=== PATIENT | male | born 1975 | race Two or more races ===

== ENCOUNTER 2024-07-11 20:59 | Emergency (ER) | payer MEDICAID, SELFPAY ==
[2024-07-11 20:59] VITALS: BMI 33.0
[2024-07-11 21:09] VITALS: BP 154/92; PULSE 100; RESP 18; TEMP 36.9; O2SAT 99
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
[2024-07-11 23:26] VITALS: BP 145/67; PULSE 87; RESP 18; TEMP 36.6; O2SAT 99
== END 2024-07-11 23:26 | disposition home or self-care (01) ==
PROVIDERS: Emergency Provider Emergency Medicine
DX: S16.1XXA Strain of muscle, fascia and tendon at neck level, initial encounter (principal); S20.219A Contusion of unspecified front wall of thorax, initial encounter; S09.90XA Unspecified injury of head, initial encounter; V89.2XXA Person injured in unspecified motor-vehicle accident, traffic, initial encounter
CPT/HCPCS: 70450; 71046; 72125; 99284

== ENCOUNTER 2024-07-24 13:49 | Outpatient (AMB) | payer MEDICAID, SELFPAY ==
[2024-07-24 14:06] VITALS: BP 158/93; PULSE 101; RESP 18; TEMP 36.3; O2SAT 96; BMI 34.5
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
== END 2024-07-24 14:26 | disposition home or self-care (01) ==
LOC: HODAHC 13:49
PROVIDERS: Supervising Provider Internal Medicine; Visit Provider Student in an Organized Health Care Education/Training Program
DX: S29.012D Strain of muscle and tendon of back wall of thorax, subsequent encounter (principal); S39.012D Strain of muscle, fascia and tendon of lower back, subsequent encounter; V89.2XXD Person injured in unspecified motor-vehicle accident, traffic, subsequent encounter; E11.9 Type 2 diabetes mellitus without complications; Z79.4 Long term (current) use of insulin; Z79.85 Long-term (current) use of injectable non-insulin antidiabetic drugs; I10 Essential (primary) hypertension
CPT/HCPCS: 99213; G0463

== ENCOUNTER 2024-10-30 13:39 | Outpatient (AMB) | payer MEDICAID, SELFPAY ==
[2024-10-30 13:51] VITALS: BP 153/91; PULSE 104; RESP 18; TEMP 36.8; O2SAT 98; BMI 34.8
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
== END 2024-10-30 14:56 | disposition home or self-care (01) ==
LOC: HODAHC 13:39
PROVIDERS: PCP Student in an Organized Health Care Education/Training Program; Referring Provider Student in an Organized Health Care Education/Training Program; Supervising Provider Internal Medicine; Visit Provider Student in an Organized Health Care Education/Training Program
DX: N47.6 Balanoposthitis (principal); E11.9 Type 2 diabetes mellitus without complications; I10 Essential (primary) hypertension; Z91.148 Patient's other noncompliance with medication regimen for other reason; Z79.4 Long term (current) use of insulin; Z79.85 Long-term (current) use of injectable non-insulin antidiabetic drugs
CPT/HCPCS: 99213; G0463

== ENCOUNTER 2024-11-06 15:10 | Outpatient (AMB) | payer MEDICAID, SELFPAY ==
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
[2024-11-06 15:39] VITALS: BP 153/99; PULSE 95; RESP 16; TEMP 36.6; O2SAT 94; BMI 34.1
== END 2024-11-06 16:14 | disposition home or self-care (01) ==
LOC: HODAHC 15:10
PROVIDERS: Supervising Provider Internal Medicine
DX: N47.6 Balanoposthitis (principal); E11.9 Type 2 diabetes mellitus without complications; Z79.4 Long term (current) use of insulin; I10 Essential (primary) hypertension
CPT/HCPCS: 99213; G0463

== ENCOUNTER 2024-11-09 20:56 | Emergency (ER) | payer MEDICAID, SELFPAY ==
[2024-11-09 21:05] VITALS: BP 152/101; PULSE 100; RESP 18; TEMP 36.8; O2SAT 95; BMI 34.1
--- NOTE | 2024-11-09 21:42 | EKG_ITS ---
[facility] Test Date: 2024-11-09 Pat Name: SUSAN TINAJERO Department: Room: - Gender: Male Ross Lift Operator: : 1975 Requested By: Eleno Aldridge Order Number: [id number] Reading MD: Eleno Aldridge Measurements Intervals [place] Rate: 94 P: 47 DC: 175 QRS: -86 QRSD: 104 T: 42 QT: 336 QTc: 421 Interpretive Statements SINUS RHYTHM INFERIOR MYOCARDIAL INFARCTION , OF INDETERMINATE AGE [40+ ms Q WAVE AND/OR ST/T ABNORMALITY IN II/aVF] ANTEROLATERAL MYOCARDIAL INFARCTION , OF INDETERMINATE AGE [40+ ms Q WAVE IN I/aVL/V3-V6] Compared to ECG 05/12/2023 13:51:39 Incomplete right bundle-branch block no longer present Myocardial infarct finding still present /store/S0/[id number]/[id number].pdf
--- NOTE | 2024-11-09 21:45 | PD.EDRME ---
Rapid Medical Screening Exam RME Arrival date/time: 11/09/24 20:56 Chief Complaint: General Adult/Misc Complain Time Seen by Provider: 11/09/24 21:16 Vital signs: Vital Signs Temperature 98.2 F 11/09/24 21:05 Pulse Rate 100 11/09/24 21:05 Respiratory Rate 18 11/09/24 21:05 Blood Pressure 152/101 H 11/09/24 21:05 Pulse Oximetry (%) 95 11/09/24 21:05 Oxygen Delivery Method Room Air 11/09/24 21:05 Vital signs reviewed by provider: Yes RME Narrative: 49-year-old male with past medical history of diabetes presents for evaluation of elevated blood sugar levels at home. Patient has been off his insulin for x 3 days. Denies chest pain, abdominal pain, vomiting.
[2024-11-09] MEDS: ONDANSETRON INJ 2 MG/ML INJ 2 ML 4 MG IV (21:57)
[2024-11-09] MEDS: SODIUM CHLORIDE 0.9% 1000 ML 1,000 ML 999 ML IV (21:57)
[2024-11-09 22:25] LABS: Base Excess, Venous 4 (-3-3); O2 Saturation, Venous 66 % (96-97); PCO2, Venous 56 mmHg (36-56); PO2, Venous 34 mmHg (15-58); pH, Venous 7.36 (7.33-7.66)
--- NOTE | 2024-11-09 22:26 | EDNOTE_ITS ---
ED General RME/HPI General Chief complaint: General Adult/Misc Complain Stated complaint: HIGH BLOOD SUGAR Time Seen by Provider: 11/09/24 21:16 Arrival date/time: 11/09/24 20:56 RME / HPI RME / HPI narrative: 49-year-old male with past medical history of diabetes presents for evaluation of elevated blood sugar levels at home. Patient has been off his insulin for x 3 days. Denies chest pain, abdominal pain, vomiting. --------- This section includes all my notes and documentations, including HPI, PE, and ED course. Chuy Pak MD HPI: 49yo male with a history of DMII, HTN, HLD presents to the ED for a chief complaint of elevated blood sugar levels. Patient states he has not been on his diabetic medications for the last few days. He endorses having a headache, nausea, and feeling lightheaded. He denies any vomiting, fever, chills or any other associated symptoms. No other complaints reported. ROS: All negative except as documented in HPI. Physical Exam: General: Alert and oriented. No acute distress when remaining still. Eyes: Conjunctivae and lids clear. ENT: No nasal congestion. Neck: Supple. Heart: RRR. Lungs: No respiratory distress. Good air movement. No rhonchi, wheezing, rales. Abdomen: Soft and nontender. Legs: No clubbing, cyanosis, edema. Skin: Warm and dry. Neuro: Alert and oriented X 3. I reviewed all diagnostic test results. My interpretation of the EKG is sinus rhythm with no acute ST?T changes. Blood tests and urine tests remarkable for hyperglycemia. At this point, diagnoses include Hyperglycemia. Treatment here included NS, Zofran, Tylenol with Codeine, and Insulin. Significant improvement noted. Recommended more outpatient care. Based on my best medical judgment, made decision no further evaluation or treatment indicated at this time. Patient understands and agrees to the discharge instructions customized and printed, see below. Discharge Instructions from Dr. Pak printed for you: 1. You are treated today for very high sugar level. 2. Take metoprolol 1000 mg 2X daily. 3. Avoid high sugar and high carbohydrate diet. 4. See a private doctor on 11/11/2024 for recheck and further care, including good management of your diabetes. 5. Seek immediate medical care with worsening or with any concerns. Chuy Pak MD Related Data Home Medications ?Medication ?Instructions ?Recorded ?Confirmed latanoprost 0.005 % eye drops 1 drp ophthalmic (eye) H S 05/13/23 11/06/24 timolol maleate 0.25 % eye drops 1 drp ophthalmic (eye ) BID 05/13/23 11/06/24 Previous Rx's ?Medication ?Instructions ?Recorded insulin glargine 100 unit/mL (3 10 unit (0.1 mL) subcu t QPM #15 mL 05/15/23 mL) subcutaneous pen (Basaglar KwikPen U-100 Insulin) methylprednisolone 4 mg tablets in See Rx Instructions PO PER PKG DIR 07/03/23 a dose pack (Medrol (Yaw)) sciatica #21 tabs sumatriptan succinate 25 mg tablet See Rx Instructions PO .COMPLEX 07/03/23 migraine #30 tabs pregabalin 75 mg capsule (Lyrica) 75 mg PO BID 1 month #60 caps 10/02/23 sumatriptan succinate 25 mg tablet 25 mg PO Q2H 1 zion h #360 tabs 10/02/23 pregabalin 75 mg capsule (Lyrica) 75 mg PO BID sciatic a #60 caps 02/05/24 atorvastatin 20 mg tablet 20 mg PO QPM #30 tabs clopidogrel 75 mg tablet 75 mg PO QDAY 30 days #30 ta bs 10/30/24 losartan 25 mg tablet 25 mg PO QDAY 1 month #30 ta bs 10/30/24 metoprolol succinate 50 mg 50 mg PO QDAY #30 tabs 10/17 12/11 tablet,extended release 24 hr semaglutide 0.25 mg or 0.5 mg (2 0.5 mg (0.736 mL) sub cut QWEEK #3 10/30/24 mg/3 mL) subcutaneous pen injector mL (Ozempic) metformin 1,000 mg tablet,extended 1,000 mg PO BID #60 tabs 11/10/24 release 24hr (osmotic) Allergies Allergy/AdvReac Type Severity Reaction Status Date / Time No Known Allergies Allergy Verified 11/09/24 20:57 Review of Systems Review of Systems Systems Reviewed: All systems reviewed, normal except as documented Past Medical History Past Medical History NEUROLOGIC: Positive Neurological Disorders (sciatica) CARDIAC: Positive Hypercholesterolemia and Hypertension; Negative Cardiac Disorders or Congestive Heart Failure RESPIRATORY: Negative Chronic Obstructive Pulmonary Disease (COPD) or Asthma GASTROINTESTINAL: Positive Hepatitis (hepatitis c); Negative Gastrointestinal Bleed, Hemorrhoids or Gastroesophageal Reflux Disease GENITOURINARY: Positive Kidney Stones; Negative Renal Disease REPRODUCTIVE: Negative Testicular Cancer MUSCULOSKELETAL: Negative Arthritis ENDOCRINE: Positive Endocrine Disorders and Diabetes Mellitus Type 2; Negative Diabetes Mellitus Type 1 HEMATOLOGIC: Negative Anemia or Sickle Cell Disease PSYCHO/SOCIAL: Positive Recreational Drug Use, Depression and Anxiety OTHER HISTORY: Negative Blood Transfusions or Testicular Cancer Social History SMOKING STATUS: Never smoker SECOND HAND EXPOSURE: No SUBSTANCE USE: does not use ED Exam Narrative Physical exam: As noted in HPI. Course Quality Measures none Orders Category Date Time Status EKG (ED ONLY) *Do not use* NOW Care 11/09/24 21:43 Completed Fingerstick [Bedside Blood Glucose] NOW Care 11/09/24 21:13 Completed Glucose [Bedside Blood Glucose] NOW Care 11/10/24 01:28 Completed Insert IV NOW Care 11/09/24 21:42 Completed EKG (ED Only) Stat Exams 11/09/24 21:42 Draft A1C [Glycohemoglobin w (eAG)] Stat Lab 11/09/24 22:01 Completed Beta Hydroxybutyrate Stat Lab 11/09/24 22:01 Completed CBC Stat Lab 11/09/24 22:01 Completed CMP [Comprehensive Metabolic Panel] Stat Lab 11/09/24 22:01 Completed Glucose Stat Lab 11/09/24 23:39 Completed Lipase Stat Lab 11/09/24 22:01 Completed Mag [Magnesium] Stat Lab 11/09/24 22:01 Completed Troponin I Stat Lab 11/09/24 22:01 Completed UA [Urinalysis] Stat Lab 11/09/24 23:15 Completed VBG [Venous Blood Gas] Stat Lab 11/09/24 22:01 Completed ACETAMINOPHEN w/COD 300-30 [Tylenol w/Cod #3] Med 11/10/24 01:46 Discontinued 2 tab PO X1 ONE Insulin Regular Med 11/09/24 22:31 Discontinued 10 unit IV X1 ONE Ondansetron Inj [Zofran Inj] Med 11/09/24 21:45 Discontinued 4 mg IV X1 ONE Sodium Chloride 0.9% 1000 ml [Ns] 1,000 ml Med 11/09/24 21:45 Discontinued IV 999 mls/hr Vital Signs Vital signs: Vital Signs Temperature 98.2 F 11/09/24 21:05 Pulse Rate 100 11/09/24 21:05 Respiratory Rate 18 11/09/24 21:05 Blood Pressure 152/101 H 11/09/24 21:05 Pulse Oximetry (%) 95 11/09/24 21:05 Oxygen Delivery Method Room Air 11/09/24 21:05 [facility] Patient data External records reviewed:: [facility] previous records (Per chart review, patient was seen here on 07/11/24 for cervical muscle strain.) Clinical information provided by:: patient Social determinants that could affect healthcare access:: none Patient has the following chronic illnesses:: DMII, HTN, HLD How is presenting disease/condition affected by chronic disease/condition?: c aused by Evaluation data The following diagnostics were reviewed and interpreted by me:: lab results and EKG tracing(s) (My interpretation of the EKG is: Sinus rhythm (94 bpm) with nonspecific ST-T changes. Chuy Pak MD) Lab and/or radiology exams considered but not ordered:: none Interpretation Summary: Hyperglycemia Medications Medications considered but not ordered:: none Medication administrations:: Medication Administration History Discontinued Medications Acetaminophen/Codeine Phosphate (Acetaminophen W/Cod 300-30 Tablet) 2 tab PO X1 ONE Stop: 11/10/24 01:47 Last Admin: 11/10/24 02:05 Dose: 2 tab Documented By: ROLO Sodium Chloride (Ns) 1,000 mls @ 999 mls/hr IV .Q1H1M ONE Stop: 11/09/24 22:45 Last Infusion: 11/09/24 22:58 Dose: Infused Documented By: Admin: 11/09/24 21:57 Dose: 999 mls/hr Documented By: FORTINO Insulin Human Regular (Insulin Hum Regular 1 Unit/0.01 Ml (Per Unit)) 10 unit IV X1 ONE Stop: 11/09/24 22:32 Last Admin: 11/10/24 00:24 Dose: 10 unit Documented By: ROLO Co-signed By: CVL Ondansetron HCl (Ondansetron Inj 2 Mg/Ml Inj 2 Ml) 4 mg IV X1 ONE; Protocol Stop: 11/09/24 21:46 Last Admin: 11/09/24 21:57 Dose: 4 mg Documented By: FORTINO NS, Zofran, Tylenol with Codeine, Insulin Consultations Consultation(s) initiated? (list below): No Diagnosis Differential Diagnosis ED Complaint MDM: Hyperglycemia, electrolyte abnormalities, dehydration Most likely diagnosis given after review of the tests above:: Hyperglycemia Admission Indicated Admission indicated?: not indicated Explain why admission is indicated or not indicated:: With significant improvement, there was no indication for admission. Admission Request Was there a request for admission?: No Disposition Plan Disposition Plan: Discharge Discharge Attestation Discharge Attestation: The patient and all family members were given an opportunity to ask questions and understood the discharge instructions. Discharge instructions specifically effects, indications for sooner follow up or return to the emergency department, and the expected course of current diagnosis. Patient condition: Stable Medical Decision Making MDM Narrative MDM Narrative: Scribe Attestation: 11/09/24 - Fátima Cowart am scribing for and in the presence of Dr. Pak. Differential Diagnosis Differential Diagnosis: Hyperglycemia, electrolyte abnormalities, dehydration Lab Data 11/09/24 22:01 11/10/24 00:18 Labs: Lab Results 11/09/24 11/09/24 11/10/24 Range/Units 22:01 23:15 00:18 WBC 9.9 (3.8-10.6) Thou/mm3 RBC 5.76 (4.50-5.90) Miln/mm3 Hgb 16.8 H (13.5-16.0) g/dL Hct 49.0 (41.0-53.0) % MCV 85 (80-100) fL MCH 29.2 (25.0-35.0) pg MCHC 34.3 (31.0-37.0) g/dl RDW Std Deviation 41.2 (35.1-43.9) fL Plt Count 218 (140-440) Thou/mm3 Neut % (Auto) 57 (37-80) % Lymph % (Auto) 32 (10-50) % [place] % (Auto) 7 (0-12) % Eos % (Auto) 4 (0-10) % Baso % (Auto) 0 (0-2.5) % Neut # (Auto) 5.6 (1.8-7.7) Thou/mm3 Lymph # (Auto) 3.2 (1.0-4.8) Thou/mm3 [place] # (Auto) 0.6 (0.0-0.8) Thou/mm3 Eos # (Auto) 0.4 (0.0-0.5) Thou/mm3 Baso # (Auto) 0.0 (0.0-0.2) Thou/mm3 Immature Gran # (Auto) 0.05 H (0.00-0.00) Thou/mm3 Absolute Nucleated RBC 0.00 (0.00-0.00) Thou/mm3 Immature Gran % 1 H (0-0) % Nucleated RBC % 0 (0) /100 WBC VBG pH 7.36 (7.33-7.66) VBG pCO2 56 (36-56) mmHg VBG pO2 34 (15-58) mmHg VBG O2 Sat (Jasmin) 66 L (96-97) % VBG Base Excess 4 H (-3-3) Sodium 135 L (136-145) mMol/L Potassium 4.4 (3.4-5.1) mMol/L Chloride 99 (98-107) mMol/L Carbon Dioxide 29.0 (20.0-31.0) mMol/L Anion Gap 7 (7-16) BUN 15 (9-23) mg/dL Creatinine 1.1 (0.6-1.3) mg/dL Estim Creat Clear Calc 98.8 (>60) mL/min eGFR > 60 (60 - ) See Note BUN/Creatinine Ratio 14 (12-20) Ratio Glucose 491 H* 393 H D (74-106) mg/dL Estimated Ave Glu mg/dL 237 H (80-131) mg/dL Hemoglobin A1c 9.9 H (4.8-6.0) % Hgb Calculated Osmolality 292 (275-295) Calcium 10.1 (8.3-10.6) mg/dL Corrected Calcium 10.1 (8.5-10.1) mg/dL Magnesium 1.9 (1.6-2.6) mg/dL Total Bilirubin 0.3 (0.3-1.2) mg/dL AST 13 (0-34) U/L ALT 29 (10-49) U/L Alkaline Phosphatase 198 H (46-116) U/L Troponin I < 0.020 (0.0-0.045) ng/mL Total Protein 7.0 (5.7-8.2) gm/dL Albumin 4.3 (3.5-5.0) gm/dL Globulin 2.7 (2.3-3.5) gm/dL Albumin/Globulin Ratio 1.6 (1.2-2.2) Lipase 55 H (12-53) U/L Beta-Hydroxybutyrate/Acetoacetate 0.1 (<0.6) mmol/L Ur Collection Type Clean Catch Urine Color Colorless A (Lt Yel-Yel) Urine Clarity Clear (Clear/Hazy) Urine pH 6.5 (5.0-7.0) Ur Specific [place] 1.038 H (1.001-1.035) Urine Protein Negative (Neg - Trace) Urine Glucose (UA) 4+ A (Negative) Urine Ketones Negative (Negative) Urine Blood Negative (Negative) Urine Nitrite Negative (Negative) Urine Bilirubin Negative (Negative) Urine Urobilinogen (Auto) Negative (0.0-1.0) mg/dL Ur Leukocyte Esterase Negative (Negative) Urine RBC 3 (0-3) /hpf Urine WBC 2 (0-5) /hpf Ur Squamous Epith Cells 0 (0-5) /hpf Urine Bacteria None (None) Urine Yeast (Budding) Present A (None) Discharge Plan Plan Patient Disposition: HOME (Self Care) Prescriptions/Referrals Prescriptions/Med Rec: New metformin 1,000 mg tablet extended release 24hr 1,000 mg PO BID Qty: 60 0RF No Action insulin glargine [Basaglar KwikPen U-100 Insulin] 100 unit/mL (3 mL) insulin pen 10 unit subcut QPM Qty: 15 3RF Rx Instructions: 10u at night methylprednisolone [Medrol (Yaw)] 4 mg tablets,dose pack See Rx Instructions PO PER PKG DIR MDD 24 mg Qty: 21 0RF Rx Instructions: PO PER PKG DIR sumatriptan succinate 25 mg tablet See Rx Instructions PO .COMPLEX MDD 50 mg Qty: 30 5RF Rx Instructions: take 1 tab at onset of headache; imay repeat 1 tab after 2 hrs; max = 2 tabs/24 hr PO sumatriptan succinate 25 mg tablet 25 mg PO Q2H 30 Days Qty: 360 3RF pregabalin [Lyrica] 75 mg capsule 75 mg PO BID 30 Days Qty: 60 3RF pregabalin [Lyrica] 75 mg capsule 75 mg PO BID MDD 150 mg Qty: 60 0RF clopidogrel 75 mg tablet 75 mg PO QDAY 30 Days Qty: 30 3RF atorvastatin 20 mg tablet 20 mg PO QPM Qty: 30 3RF Ozempic 0.25 mg or 0.5 mg (2 mg/3 mL) pen injector 0.5 mg SUBCUT QWEEK Qty: 3 0RF metoprolol succinate 50 mg tablet extended release 24 hr 50 mg PO QDAY MDD 50 mg Qty: 30 5RF losartan 25 mg tablet 25 mg PO QDAY 30 Days Qty: 30 0RF latanoprost 0.005 % drops 1 drp OPHTHALMIC (EYE) HS Patient Comments: INSTILL ONE DROP IN BOTH EYES EVERY NIGHT AT BEDTIME timolol maleate 0.25 % drops 1 drp OPHTHALMIC (EYE) BID Patient Comments: INSTILL 1 DROP INTO BOTH EYES TWICE A DAY Referrals: Keyon Almeida MD [Primary Care Provider] - In 1 week Problem List Clinical Impression: High blood sugar Patient/Caregiver Discharge Instructions Discharge Activity: activity as tolerated Education Materials: ED Diabetes with High Blood Sugar Additional Instructions: Discharge Instructions from Dr. Pak printed for you: 1. You are treated today for very high sugar level. 2. Take metoprolol 1000 mg 2X daily. 3. Avoid high sugar and high carbohydrate diet. 4. See a private doctor on 11/11/2024 for recheck and further care, including good management of your diabetes. 5. Seek immediate medical care with worsening or with any concerns. Print Language: Occitan Stand Alone Forms: Rhonda Award Info., Patient Portal Info Letter
[2024-11-09 22:27] LABS: Basophils % (Auto) 0 % (0-2.5); Eosinophils # (Auto) 0.4 Thou/mm3 (0.0-0.5); Eosinophils % (Auto) 4 % (0-10); Hemoglobin 16.8 g/dL (13.5-16.0); Immature Granulocytes % (Auto) 1 % (0-0); Immature Granulocytes Auto 0.05 Thou/mm3 (0.00-0.00); Lymphocytes # (Auto) 3.2 Thou/mm3 (1.0-4.8); Lymphocytes % (Auto) 32 % (10-50); Mean Corpuscular HGB Conc 34.3 g/dl (31.0-37.0); Mean Corpuscular Hemoglobin 29.2 pg (25.0-35.0); Mean Corpuscular Volume 85 fL (80-100); Monocytes # (Auto) 0.6 Thou/mm3 (0.0-0.8); Monocytes % (Auto) 7 % (0-12); Neutrophils # (Auto) 5.6 Thou/mm3 (1.8-7.7); Neutrophils % (Auto) 57 % (37-80); Nucleated Red Blood Cell % 0 /100 WBC (0); Platelet Count 218 Thou/mm3 (140-440); RDW Standard Deviation 41.2 fL (35.1-43.9); Red Blood Count 5.76 Miln/mm3 (4.50-5.90); White Blood Count 9.9 Thou/mm3 (3.8-10.6)
[2024-11-09 22:30] LABS: Beta Hydroxybutyrate 0.1 mmol/L (<0.6)
[2024-11-09 23:06] LABS: Alanine Aminotransferase 29 U/L (10-49); Albumin, Serum 4.3 gm/dL (3.5-5.0); Albumin/Globulin Ratio 1.6 (1.2-2.2); Alkaline Phosphatase 198 U/L (46-116); Anion Gap 7 (7-16); Aspartate Amino Transferase 13 U/L (0-34); BUN/Creatinine Ratio 14 Ratio (12-20); Bilirubin,Total 0.3 mg/dL (0.3-1.2); Blood Urea Nitrogen 15 mg/dL (9-23); Calcium 10.1 mg/dL (8.3-10.6); Calcium (Corrected) 10.1 mg/dL (8.5-10.1); Chloride 99 mMol/L (98-107); Creatinine (Component) 1.1 mg/dL (0.6-1.3); Estimated Creatinine Clearance 98.8 mL/min (>60); Globulin 2.7 gm/dL (2.3-3.5); Lipase 55 U/L (12-53); Osmolality,Calculated 292 (275-295); Potassium 4.4 mMol/L (3.4-5.1); Sodium 135 mMol/L (136-145); Troponin I < 0.020 ng/mL (0.0-0.045); eGFR > 60 See Note
[2024-11-09 23:11] LABS: Glucose Estimated Average 237 mg/dL (80-131); Hemoglobin A1C 9.9 % Hgb (4.8-6.0)
[2024-11-09 23:18] LABS: Magnesium 1.9 mg/dL (1.6-2.6)
[2024-11-09 23:25] LABS: Collection Type, Urine Clean Catch; Squamous Epithelial Cell,Urine 0 /hpf (0-5)
[2024-11-09 23:29] LABS: Glucose 491 mg/dL (74-106)
[2024-11-09 23:38] LABS: Bilirubin,Urine Negative (Negative); Blood,Urine Negative (Negative); Budding Yeast,Urine Present; Clarity,Urine Clear (Clear/Hazy); Color,Urine Colorless (Lt Yel-Yel); Glucose, Urine 4+ (Negative); Ketones,Urine Negative (Negative); Leukocyte Esterase,Urine Negative (Negative); Nitrite,Urine Negative (Negative); PH,Urine 6.5 (5.0-7.0); Protein,Urine Negative (Neg - Trace); RBC,Urine 3 /hpf (0-3); Specific Gravity,Urine 1.038 (1.001-1.035); Urobilinogen,Urine Negative mg/dL (0.0-1.0); WBC,Urine 2 /hpf (0-5)
[2024-11-10] MEDS: INSULIN HUM REGULAR 1 UNIT/0.01 ML (PER UNIT) 10 UNIT IV (00:24)
[2024-11-10 00:47] LABS: Glucose 393 mg/dL (74-106)
[2024-11-10 01:23] VITALS: BP 178/119; PULSE 89; RESP 18; TEMP 36.9; O2SAT 95
[2024-11-10] MEDS: ACETAMINOPHEN w/COD 300-30 TABLET 2 TAB PO (02:05)
== END 2024-11-10 02:08 | disposition home or self-care (01) ==
PROVIDERS: Physician Assistant; Emergency Provider Emergency Medicine; PCP Student in an Organized Health Care Education/Training Program
DX: E11.65 Type 2 diabetes mellitus with hyperglycemia (principal); I10 Essential (primary) hypertension; E78.5 Hyperlipidemia, unspecified
CPT/HCPCS: 36415; 80053; 81001; 82010; 82803; 82947; 83036; 83690; 83735; 84484; 85025; 93005; 96361; 96374; 99284; J1815; J2405; J7030; A9270

== ENCOUNTER 2024-11-15 15:39 | Emergency (ER) | payer MEDICAID, SELFPAY ==
[2024-11-15 15:45] VITALS: BP 146/95; PULSE 112; RESP 18; TEMP 36.5; O2SAT 95; BMI 33.0
--- NOTE | 2024-11-15 15:45 | EKG_ITS ---
[facility] Test Date: 2024-11-15 Pat Name: SUSAN TINAJERO Department: Room: - Gender: Male Comp Field Case Manager: : 1975 Requested By: ED Temporary Provider Order Number: [id number] Reading MD: ED Temporary Provider Measurements Intervals [place] Rate: 104 P: 18 PA: 148 QRS: -87 QRSD: 97 T: 45 QT: 309 QTc: 408 Interpretive Statements SINUS TACHYCARDIA INCOMPLETE RIGHT BUNDLE BRANCH BLOCK [90+ ms QRS DURATION, TERMINAL R IN V1/V2, 40+ ms S IN I/aVL/V4/V5/V6] POSSIBLE ANTERIOR MYOCARDIAL INFARCTION , OF INDETERMINATE AGE [30 ms Q WAVE IN V3/V4, OR R < 0.2 mV IN V4] INFERIOR MYOCARDIAL INFARCTION , OF INDETERMINATE AGE [40+ ms Q WAVE AND/OR ST/T ABNORMALITY IN II/aVF] Compared to ECG 11/09/2024 22:46:08 Incomplete right bundle-branch block now present Sinus rhythm no longer present Myocardial infarct finding still present /store/S0/[id number]/ecg/[id number].pdf
--- NOTE | 2024-11-15 16:11 | PD.EDRME ---
Rapid Medical Screening Exam RME Arrival date/time: 11/15/24 15:39 49-year-old male with history of methamphetamine abuse presents emerged part today for complaints of chest pain Chief Complaint: Chest Pain Vital signs: Vital Signs Temperature 97.7 F 11/15/24 15:45 Pulse Rate 112 H 11/15/24 15:45 Respiratory Rate 18 11/15/24 15:45 Blood Pressure 146/95 H 11/15/24 15:45 Pulse Oximetry (%) 95 11/15/24 15:45 Oxygen Delivery Method Room Air 11/15/24 15:45
[2024-11-15 16:29] LABS: Basophils % (Auto) 0 % (0-2.5); Eosinophils # (Auto) 0.3 Thou/mm3 (0.0-0.5); Eosinophils % (Auto) 3 % (0-10); Hematocrit 48.8 % (41.0-53.0); Hemoglobin 17.3 g/dL (13.5-16.0); Immature Granulocytes % (Auto) 1 % (0-0); Immature Granulocytes Auto 0.07 Thou/mm3 (0.00-0.00); Lymphocytes # (Auto) 2.6 Thou/mm3 (1.0-4.8); Lymphocytes % (Auto) 29 % (10-50); Mean Corpuscular HGB Conc 35.5 g/dl (31.0-37.0); Mean Corpuscular Hemoglobin 29.5 pg (25.0-35.0); Mean Corpuscular Volume 83 fL (80-100); Monocytes # (Auto) 0.6 Thou/mm3 (0.0-0.8); Monocytes % (Auto) 7 % (0-12); Neutrophils # (Auto) 5.4 Thou/mm3 (1.8-7.7); Neutrophils % (Auto) 60 % (37-80); Nucleated Red Blood Cell % 0 /100 WBC (0); Platelet Count 229 Thou/mm3 (140-440); Red Blood Count 5.87 Miln/mm3 (4.50-5.90); White Blood Count 8.9 Thou/mm3 (3.8-10.6)
--- NOTE | 2024-11-15 16:37 | XR_ITS ---
Examination: AP chest single view TECHNIQUE: Portable AP sitting chest single view Exam date 9: November 15, 2024 1645 hours Comparison July 11, 2024 INDICATIONS: Chest pain and lightheadedness beginning 2 days ago. FINDINGS: Normal heart size Minor scarring left base. No unremarkable pneumonia or pulmonary edema IMPRESSION: No interval pneumonia or pulmonary edema
--- NOTE | 2024-11-15 16:38 | PD.EDADULT ---
ED General RME/HPI General Chief complaint: Chest Pain Stated complaint: TIGHTNESS TO CHEST, LIGHT HEADED X 2 DAYS Time Seen by Provider: 11/15/24 16:25 Arrival date/time: 11/15/24 15:39 CC: Chest pressure left anterior chest HPI ongoing intermittent for the past 4 days has had multiple chest pressure episodes 20+ in the last 2 years but not saying anything to anybody at home. Patient denies fever chills shortness of breath or difficulty breathing. RME / HPI RME / HPI narrative: 11/15/24 15:39 49-year-old male with history of methamphetamine abuse presents emerged part today for complaints of chest pain Related Data Previous Rx's ?Medication ?Instructions ?Recorded atorvastatin 20 mg tablet 20 mg PO QPM #30 tabs 10/30/24 clopidogrel 75 mg tablet 75 mg PO QDAY 30 days #30 tabs 10/30/24 losartan 25 mg tablet 25 mg PO QDAY 1 month #30 tabs 10/30/24 metoprolol succinate 50 mg 50 mg PO QDAY #30 tabs 10/30/24 tablet,extended release 24 hr blood-glucose sensor (FreeStyle #1 ea 11/10/24 Meena 3 Sensor device) insulin degludec 100 unit/mL (3 10 unit (0.1 mL) subcut QHS #15 mL 11/10/24 mL) subcutaneous pen metformin 1,000 mg tablet,extended 1,000 mg PO BID #60 tabs 11/10/24 release 24hr (osmotic) semaglutide 0.25 mg or 0.5 mg (2 0.5 mg (0.736 mL) subcut QWEEK #3 11/11/24 mg/3 mL) subcutaneous pen injector mL (Ozempic) Allergies Allergy/AdvReac Type Severity Reaction Status Date / Time No Known Allergies Allergy Verified 11/15/24 15:40 Review of Systems Review of Systems Narrative Review of Systems: GEN: No fever, no chills, no weight loss EYES: No discharge, no visual changes, no pain HEENT: No ear pain, no congestion, no sore throat PULM: No shortness of breath, no cough, no congestion CV: + chest pressure, no dyspnea on exertion, no palpitations GI: No nausea, no vomiting, no diarrhea, no pain, no constipation : No frequency, no urgency, no dysuria MUSC/SKEL: No joint pain, no back pain SKIN: No rash PSYCH: No hallucinations, no depression HEME/LYMPH: No easy bleeding or bruising tendencies NEURO: No weakness, no headache ED Exam Narrative Physical exam: [General: Obese, anxious, but not in any acute distress Head normocephalic HEENT: Within acceptable limits Neck is supple nontender Chest equal chest rise nontender to palpation Respiratory: Clear to auscultation no wheezes crackles or rubs CV: Rate rhythm is regular no murmurs rubs or clicks Abdomen is distended secondary to body habitus soft nontender no masses positive bowel sounds all 4 quadrants Back: No CVA tenderness no spinous process tenderness from cervical spine thoracic and lumbar spine Skin: Intact no petechiae rash induration ulceration or crepitus Extremities: Moving all extremity against resistance cap refill less than 2 seconds neurosensory intact. No lower extremity edema Neuro: Awake alert oriented x3 Glascow coma 15 no focal deficits] Course Quality Measures none Orders Category Date Time Status Mica Splitter NOW Care 11/15/24 16:10 Active EKG (ED ONLY) *Do not use* NOW Care 11/15/24 15:45 Completed Glucose [Bedside Blood Glucose] NOW Care 11/15/24 19:05 Active EKG (ED Only) Stat Exams 11/15/24 15:45 Draft XR chest 1V Stat Exams 11/15/24 16:37 Completed B-Type Natriuretic Peptide Stat Lab 11/15/24 16:18 Completed CBC Stat Lab 11/15/24 16:18 Completed Comprehensive Metabolic Panel Stat Lab 11/15/24 16:18 Completed Drug Screen,Urine Stat Lab 11/15/24 17:48 Completed Magnesium Stat Lab 11/15/24 16:18 Completed Partial Thromboplastin Time Stat Lab 11/15/24 16:18 Completed Prothrombin Time with INR Stat Lab 11/15/24 16:18 Completed Troponin I Stat Lab 11/15/24 16:18 Completed Troponin I Stat Lab 11/15/24 19:16 Completed Insulin Regular Med 11/15/24 17:06 Discontinued 10 unit SC X1 ONE hydrALAZINE INJ [Apresoline Inj] Med 11/15/24 16:39 Discontinued 10 mg IV X1 ONE Vital Signs Vital signs: Vital Signs Temperature 97.7 F 11/15/24 15:45 Pulse Rate 112 H 11/15/24 15:45 Respiratory Rate 18 11/15/24 15:45 Blood Pressure 146/95 H 11/15/24 15:45 Pulse Oximetry (%) 95 11/15/24 15:45 Oxygen Delivery Method Room Air 11/15/24 15:45 [facility] Patient data External records reviewed:: [facility] previous records Clinical information provided by:: patient Social determinants that could affect healthcare access:: none Patient has the following chronic illnesses:: Diabetes hypertension hyperlipidemia CVA on blood thinners. How is presenting disease/condition affected by chronic disease/condition?: exacerbated by Evaluation data The following diagnostics were reviewed and interpreted by me:: lab results, radiology exam(s) and EKG tracing(s) Lab and/or radiology exams considered but not ordered:: EKG performed at 1549 shows a ventricular rate of 104 OH interval 148 QRS of 9 7 QTc of 370 the sinus tachycardia incomplete right bundle branch block. When compared to an old EKG of November 09, 2024 there are no significant changes. Coags within acceptable limits. CMP shows a sodium 135 glucose of 440 no gap. Mag of 1.9 No transaminitis or T. bili elevation BNP is less than 20 troponin is within acceptable limits Chest x-ray is unremarkable for any acute findings interpreted by me read by radiology. Initial and repeat troponins are negative. Interpretation Summary: Patient has a heart score of 3, repeat troponin is negative will discharge home for outpatient follow-up. Medications Medications considered but not ordered:: None Medication administrations:: Medication Administration History Discontinued Medications Hydralazine HCl (Hydralazine Inj 20 Mg/Ml Vial) 10 mg IV X1 ONE Stop: 11/15/24 16:40 Last Admin: 11/15/24 16:43 Dose: 10 mg Documented By: RIN Insulin Human Regular (Insulin Hum Regular 1 Unit/0.01 Ml (Per Unit)) 10 unit SC X1 ONE Stop: 11/15/24 17:07 Last Admin: 11/15/24 17:15 Dose: 10 unit Documented By: RIN Co-signed By: SONAL None Consultations Consultation(s) initiated? (list below): No Diagnosis Differential Diagnosis ED Complaint MDM: ACS [place] pneumonia Most likely diagnosis given after review of the tests above:: Chest pain, hyperglycemia Admission Indicated Admission indicated?: not indicated Explain why admission is indicated or not indicated:: Stable for outpatient follow-up Admission Request Was there a request for admission?: No Disposition Plan Disposition Plan: Discharge Discharge Attestation Discharge Attestation: The patient and all family members were given an opportunity to ask questions and understood the discharge instructions. Discharge instructions specifically effects, indications for sooner follow up or return to the emergency department, and the expected course of current diagnosis. Patient condition: Stable Medical Decision Making Differential Diagnosis Differential Diagnosis: ACS [place] pneumonia Lab Data 11/15/24 16:18 11/15/24 16:18 Labs: Lab Results 11/15/24 11/15/24 11/15/24 Range/Units 16:18 17:48 19:16 WBC 8.9 (3.8-10.6) Thou/mm3 RBC 5.87 (4.50-5.90) Miln/mm3 Hgb 17.3 H (13.5-16.0) g/dL Hct 48.8 (41.0-53.0) % MCV 83 (80-100) fL MCH 29.5 (25.0-35.0) pg MCHC 35.5 (31.0-37.0) g/dl RDW Std Deviation 40.0 (35.1-43.9) fL Plt Count 229 (140-440) Thou/mm3 Neut % (Auto) 60 (37-80) % Lymph % (Auto) 29 (10-50) % Sevier % (Auto) 7 (0-12) % Eos % (Auto) 3 (0-10) % Baso % (Auto) 0 (0-2.5) % Neut # (Auto) 5.4 (1.8-7.7) Thou/mm3 Lymph # (Auto) 2.6 (1.0-4.8) Thou/mm3 Sevier # (Auto) 0.6 (0.0-0.8) Thou/mm3 Eos # (Auto) 0.3 (0.0-0.5) Thou/mm3 Baso # (Auto) 0.0 (0.0-0.2) Thou/mm3 Immature Gran # (Auto) 0.07 H (0.00-0.00) Thou/mm3 Absolute Nucleated RBC 0.00 (0.00-0.00) Thou/mm3 Immature Gran % 1 H (0-0) % Nucleated RBC % 0 (0) /100 WBC PT 10.3 (9.0-12.2) Seconds INR 0.9 (0.9-1.3) APTT 25.9 (22.0-36.0) Seconds Sodium 135 L (136-145) mMol/L Potassium 5.1 (3.4-5.1) mMol/L Chloride 100 (98-107) mMol/L Carbon Dioxide 29.1 (20.0-31.0) mMol/L Anion Gap 6 L (7-16) BUN 13 (9-23) mg/dL Creatinine 1.2 (0.6-1.3) mg/dL Estim Creat Clear Calc 89.1 (>60) mL/min eGFR > 60 (60 - ) See Note BUN/Creatinine Ratio 11 L (12-20) Ratio Glucose 440 H* (74-106) mg/dL Calculated Osmolality 289 (275-295) Calcium 9.5 (8.3-10.6) mg/dL Corrected Calcium 9.5 (8.5-10.1) mg/dL Magnesium 1.9 (1.6-2.6) mg/dL Total Bilirubin 0.4 (0.3-1.2) mg/dL AST 16 (0-34) U/L ALT 30 (10-49) U/L Alkaline Phosphatase 163 H (46-116) U/L Troponin I < 0.020 < 0.020 (0.0-0.045) ng/mL B-Natriuretic Peptide < 20 (0-100) pg/mL Total Protein 7.2 (5.7-8.2) gm/dL Albumin 4.3 (3.5-5.0) gm/dL Globulin 2.9 (2.3-3.5) gm/dL Albumin/Globulin Ratio 1.5 (1.2-2.2) Urine Opiates Screen Negative (Negative) Urine Fentanyl Screen Negative (Negative) Ur Barbiturates Screen Negative (Negative) U Amphetamin/Meth Scrn Negative (Negative) U Benzodiazepines Scrn Negative (Negative) U Cocaine Metab Screen Negative (Negative) U Marijuana (THC) Screen Negative (Negative) Discharge Plan Plan Patient Disposition: HOME (Self Care) Patient condition on transfer: Stable Prescriptions/Referrals Prescriptions/Med Rec: No Action clopidogrel 75 mg tablet 75 mg PO QDAY 30 Days Qty: 30 3RF atorvastatin 20 mg tablet 20 mg PO QPM Qty: 30 3RF metoprolol succinate 50 mg tablet extended release 24 hr 50 mg PO QDAY MDD 50 mg Qty: 30 5RF losartan 25 mg tablet 25 mg PO QDAY 30 Days Qty: 30 0RF (DME) FreeStyle Meena 3 Sensor Device See Rx Instructions .Route Qty: 1 3RF Rx Instructions: As directed insulin degludec 100 unit/mL (3 mL) insulin pen 10 unit subcut QHS Qty: 15 3RF Rx Instructions: 10 units every night at 10 PM metformin 1,000 mg tablet extended release 24hr 1,000 mg PO BID Qty: 60 0RF Ozempic 0.25 mg or 0.5 mg (2 mg/3 mL) pen injector 0.5 mg SUBCUT QWEEK Qty: 3 3RF Referrals: No Primary/Family,Physician [Primary Care Provider] - In 1 week Bryan Russell MD [Physician] - In 1 week Problem List Clinical Impression: Chest pain, Hyperglycemia due to diabetes mellitus Patient/Caregiver Discharge Instructions Education Materials: ED Chest Pain, Uncertain Cause Additional Instructions: Follow-up with your primary care provider continue to take your medications as stated continue to not use any methamphetamines follow-up with a food consultant for outpatient workup if there is worsening of symptoms in spite of these interventions return to the emergency room immediately for further evaluation. Print Language: Persian Stand Alone Forms: Rhonda Award Info., Work/School Release, Patient Portal Info Letter PA/RAFAEL Supervising Physician PA/RAFAEL Supervising Physician: Orion Lagos ENP
[2024-11-15 16:42] LABS: INR 0.9 (0.9-1.3); Partial Thromboplastin Time 25.9 Seconds (22.0-36.0); Prothrombin Time 10.3 Seconds (9.0-12.2)
[2024-11-15 16:43] VITALS: BP 158/116; PULSE 109
[2024-11-15] MEDS: hydrALAZINE INJ 20 MG/ML VIAL 10 MG IV (16:43)
[2024-11-15 16:45] LABS: B-Type Natriuretic Peptide < 20 pg/mL (0-100)
[2024-11-15 16:52] LABS: Alanine Aminotransferase 30 U/L (10-49); Albumin, Serum 4.3 gm/dL (3.5-5.0); Albumin/Globulin Ratio 1.5 (1.2-2.2); Alkaline Phosphatase 163 U/L (46-116); Anion Gap 6 (7-16); Aspartate Amino Transferase 16 U/L (0-34); BUN/Creatinine Ratio 11 Ratio (12-20); Bilirubin,Total 0.4 mg/dL (0.3-1.2); Blood Urea Nitrogen 13 mg/dL (9-23); Calcium 9.5 mg/dL (8.3-10.6); Calcium (Corrected) 9.5 mg/dL (8.5-10.1); Carbon Dioxide 29.1 mMol/L (20.0-31.0); Chloride 100 mMol/L (98-107); Creatinine (Component) 1.2 mg/dL (0.6-1.3); Estimated Creatinine Clearance 89.1 mL/min (>60); Globulin 2.9 gm/dL (2.3-3.5); Magnesium 1.9 mg/dL (1.6-2.6); Osmolality,Calculated 289 (275-295); Potassium 5.1 mMol/L (3.4-5.1); Sodium 135 mMol/L (136-145); Total Protein 7.2 gm/dL (5.7-8.2); Troponin I < 0.020 ng/mL (0.0-0.045); eGFR > 60 See Note
[2024-11-15 16:54] LABS: Glucose 440 mg/dL (74-106)
[2024-11-15] MEDS: INSULIN HUM REGULAR 1 UNIT/0.01 ML (PER UNIT) 10 UNIT SC (17:15)
[2024-11-15 17:20] VITALS: BP 150/98; PULSE 107
[2024-11-15 18:05] VITALS: BP 147/97; PULSE 106; RESP 16; TEMP 36.8; O2SAT 97
[2024-11-15 18:16] LABS: Amphetamine/Methamp Scrn,U Negative (Negative); Barbiturate Screen,Urine Negative (Negative); Benzodiazepines Screen,Urine Negative (Negative); Benzoylecgonine Screen, Ur Negative (Negative); Fentanyl Screen,Urine Negative (Negative); Opiate Screen,Urine Negative (Negative); THC Screen,Urine Negative (Negative)
[2024-11-15 19:11] VITALS: BP 143/99; PULSE 102; RESP 18; O2SAT 95
[2024-11-15 19:41] LABS: Troponin I < 0.020 ng/mL (0.0-0.045)
[2024-11-15 20:07] VITALS: BP 135/93; PULSE 103; RESP 18; O2SAT 96
== END 2024-11-15 20:08 | disposition home or self-care (01) ==
PROVIDERS: Nurse Practitioner Primary Care; Registered Nurse General Practice; Emergency Provider Emergency Medicine
DX: E11.65 Type 2 diabetes mellitus with hyperglycemia (principal); R07.89 Other chest pain; R00.0 Tachycardia, unspecified; I45.10 Unspecified right bundle-branch block; Z79.85 Long-term (current) use of injectable non-insulin antidiabetic drugs; Z79.4 Long term (current) use of insulin; Z79.84 Long term (current) use of oral hypoglycemic drugs; I10 Essential (primary) hypertension
CPT/HCPCS: 36415; 71045; 80053; 80307; 83735; 83880; 84484; 85025; 85610; 85730; 93005; 96372; 99283; J0360; J1815

== ENCOUNTER 2024-11-27 14:49 | Outpatient (AMB) | payer MEDICAID, SELFPAY ==
[2024-11-27 15:03] VITALS: BP 148/89; PULSE 96; RESP 17; TEMP 36.8; O2SAT 96
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
== END 2024-11-27 15:55 | disposition home or self-care (01) ==
LOC: HODAHC 14:49
PROVIDERS: Supervising Provider Internal Medicine
DX: E11.65 Type 2 diabetes mellitus with hyperglycemia (principal); Z79.4 Long term (current) use of insulin; Z79.84 Long term (current) use of oral hypoglycemic drugs; I10 Essential (primary) hypertension; Z86.73 Personal history of transient ischemic attack (TIA), and cerebral infarction without residual deficits; Z79.02 Long term (current) use of antithrombotics/antiplatelets; E66.9 Obesity, unspecified; Z79.85 Long-term (current) use of injectable non-insulin antidiabetic drugs
CPT/HCPCS: 99213; G0463

== ENCOUNTER 2024-12-28 13:42 | Outpatient (AMB) | payer MEDICAID, SELFPAY ==
[2024-12-28 13:58] VITALS: BP 142/81; PULSE 85; RESP 18; TEMP 36.2; O2SAT 95; BMI 34.9
--- NOTE | 2024-12-28 13:58 | ACNOTE_ITS ---
Vital Signs 12/28/24 13:58 Height 1.78 m Height Method Stated Weight 110.903 kg Weight Measurement Method Standing Scale BMI 34.9 BP 142/81 H Blood Pressure Source Automatic Cuff Blood Pressure Location Right Upper Arm Position Sitting Respiration 18 Pulse 85 Pulse Source Monitor Temp 97.2 F Temp Source Temporal Artery Scan Pulse Oximetry (%) 95 Oxygen Delivery Method Room Air Allergies/Meds Allergies & Medications Allergies No Known Allergies Allergy (Verified 12/29/24 13:55) Medication Reconciliation atorvastatin 20 mg tablet 20 mg PO QPM #30 tabs 10/30/24 [Rx Confirmed 12/29/24] clopidogrel 75 mg tablet 75 mg PO QDAY 30 days #30 tabs 10/30/24 [Rx Confirmed 12/29/24] metoprolol succinate 50 mg tablet,extended release 24 hr 50 mg PO QDAY #30 tabs 10/30/24 [Rx Confirmed 12/29/24] blood-glucose sensor (FreeStyle Meena 3 Sensor device) #1 ea 11/10/24 [Rx Confirmed 12/29/24] insulin degludec 100 unit/mL (3 mL) subcutaneous pen 10 unit (0.1 mL) subcut QHS #15 mL 11/10/24 [Rx Confirmed 12/29/24] metformin 1,000 mg tablet,extended release 24hr (osmotic) 1,000 mg PO BID #60 tabs 11/10/24 [Rx Confirmed 12/29/24] semaglutide 0.25 mg or 0.5 mg (2 mg/3 mL) subcutaneous pen injector (Ozempic) 0.5 mg (0.736 mL) subcut QWEEK #3 mL 11/11/24 [Rx Confirmed 12/29/24] blood-glucose sensor (FreeStyle Meena 3 Plus Sensor device) #1 ea 11/27/24 [Rx Confirmed 12/29/24] pantoprazole 40 mg tablet,delayed release 40 mg PO QDAY #30 tabs 11/27/24 [Rx Confirmed 12/29/24] hydrocodone 5 mg-acetaminophen 325 mg tablet 1 tab PO Q4H PRN severe pain (scale score 7-10) 1 week #30 tabs 12/28/24 [Rx Confirmed 12/29/24] losartan 25 mg tablet 50 mg (2 x 25 mg) PO QDAY 1 month #60 tabs 12/28/24 [Rx Confirmed 12/29/24] tramadol 50 mg tablet 50 mg PO BID PRN pain #10 tabs 12/28/24 [Rx Confirmed 12/17 11/10] MA Intake Visit Data Collection New Patient or Established: Established Patient (seen at [facility] within 3 years) Seen by Clinical Staff ONLY (RN/MA): No Pain Present Currently: No Pain scale:: 0 Pain Scale Used: Martinez-Patino/Numerical Warehouse Inventory Clerk Required: No PCP or OBGYN visit in last 3 months: No Hx Now: No Do You Feel Safe at Home: Yes Authorities Contacted: N/A Smoking Status Smoking Status: Never smoker Immunization / Flu Flu Vaccine in the Last 12 Months: No Flu Vaccine Exclusion Criteria: No Exclusion Criteria Past Medical History Past Medical History NEUROLOGIC: Positive Neurological Disorders CARDIAC: Positive Hypercholesterolemia and Hypertension; Negative Cardiac Disorders or Congestive Heart Failure RESPIRATORY: Negative Chronic Obstructive Pulmonary Disease (COPD) or Asthma GASTROINTESTINAL: Positive Hepatitis; Negative Gastrointestinal Bleed, Hemorrhoids or Gastroesophageal Reflux Disease GENITOURINARY: Positive Kidney Stones; Negative Renal Disease REPRODUCTIVE: Negative Testicular Cancer MUSCULOSKELETAL: Negative Arthritis ENDOCRINE: Positive Endocrine Disorders and Diabetes Mellitus Type 2; Negative Diabetes Mellitus Type 1 HEMATOLOGIC: Negative Anemia or Sickle Cell Disease PSYCHO/SOCIAL: Positive Recreational Drug Use, Depression and Anxiety OTHER HISTORY: Negative Blood Transfusions or Testicular Cancer Social History SMOKING STATUS: Smoking status: Never smoker SECOND HAND EXPOSURE: second hand exposure: No ALCOHOL: Alcohol Intake: Never HOUSING: Housing: mobile home LIVES WITH: Lives With: Family Patient Portal Questionaires PHQ-9 PHQ-2 Over the last 2 weeks, how often have you been bothered by any of the following problems? 1. Little interest or pleasure in doing things: not at all PHQ-9 8. Moving or speaking so slowly that other people could have noticed? - Or the opposite - being so fidgety or restless that you have been moving around a lot more than usual: not at all Source: Developed by Drs. Baljit Arenas, Deborah Montes De Oca, Gigi Kaye and colleagues, with an educational inna from [employer]. Social History Living Situation History Housing: mobile home Housing Other:: Patient resides at home with his aunt and step-father Tobacco History Smoking Status: Never smoker Second Hand Smoke Exposure: No Alcohol History Alcohol Intake: Never Domestic Abuse History Do You Feel Safe at Home: Yes Review of Systems Report any current symptoms Only answer those that you have currently: Past Medical History Past Medical History Have you ever been diagnosed with any of the following: Cardiology Problems Hypercholesterolemia: Yes Congestive Heart Failure: No Hypertension: Yes Respiratory Problems Chronic Obstructive Pulmonary Disease (COPD): No Asthma: No Stomache/Intestinal Problems Hepatitis: Yes Gastrointestinal Bleed: No Hemorrhoids: No Gastroesophageal Reflux Disease: No Genital/Urinary Problems Renal Disease: No Kidney Stones: Yes Reproductive Problems Testicular Cancer: No Musculoskeletal Problems Arthritis: No Endocrine Problems Diabetes Mellitus Type 1: No Diabetes Mellitus Type 2: Yes Blood Problems Anemia: No Sickle Cell Disease: No Psychologic Problems Recreational Drug Use: Yes Depression: Yes Anxiety: Yes Other Problems Blood Transfusions: No History of Present Illness HPI Narrative Mr. Harrington is a 49-year-old obese male with a past medical history of diabetes mellitus, hypertension and recurrent occipital headaches who came to the [facility] after presenting with two broken fingers, 3rd and 4th of his left hand. Patient went to [place] ED on Saturday morning after unfortunate incident while using his leaf blower. In the ED, patient's fingers were cleaned and stitched and was supposed to f/u with hand surgeron in [place] the next day. The next day, office informed patient that his insurance wasn't accepted and was told to follow up with referral via his PCP. Will have patient request records of scans and procedures at the [place] ED and refer him to an orthopedic hand surgeon for later this week. Patient otherwise is concerned if he will eventually lose sensation in both of his fingers. However, reassured patient that if hand surgeon can evaulate his fingers soon, we will reduce that chance. Patient states he is still able to feel his fingers, and states that the pain is controlled with Bellerose Q4HR and Tramadol at night. Will send him pain medications to last him next week, and will hopefully have him f/u with orthopedic hand surgeon prior to next week's appointment. D/t the excruciating pain, his BP also has been affected, and agree with increasing his Losartan to 50mg QD. Review of Systems Review of Systems Systems Reviewed: All systems reviewed, normal except as documented Objective/Exam Narrative Physical exam: General: Awake and in no acute distress. Conversational and non-toxic appearing. HEENT: Normocephalic, atraumatic, mucous membranes moist. Heart: Regular rate and rhythm, no murmurs. Lungs: Clear to auscultation with no wheezing or crackles. Abdomen: Soft, nondistended, nontender, positive bowel sounds. ?No guarding or rebound tenderness. Neurologic: Alert and oriented x3, no gross neurological deficit, and patient able to move all 4 extremities except for left fingers limited d/t pain. Extremities: Left 3rd and 4th finger bandaged, no blood/discharge noted. Skin: No rash or ecchymoses. Assessment & Plan Diagnosis / Problem List (1) Broken finger: Status: Acute Assessment & Plan: Patient presented to the [facility] after presenting with two broken fingers, 3rd and 4th of his left hand. Patient went to [place] ED on Saturday morning after unfortunate incident while using his leaf blower. In the ED, patient's fingers were cleaned and stitched and was supposed to f/u with hand surgeon in [place] the next day. Plan: - Will have patient request records of scans and procedures at the [place] ED - Referral placed for hand surgery - Pain control with 1 week supply of Bellerose Q4HR and Tramadol HS at night. -F/u next week for f/u (2) Hypertension: Status: Acute Qualifiers: Hypertension type: primary hypertension Qualified Code(s): I10 - Essential (primary) hypertension Assessment & Plan: Patient's BP continues to rise, in the setting of acute pain from above finger fractures. Plan: -Increased patient's Losartan from 25mg to 50mg -Referral placed to Dr. Mazariegos in [place] Orders: Referrals Cardiology Orthopedics S62.609A - Fracture of unspecified phalanx of unspecified finger, initial encounter for closed fracture Additional Assessment Patient's care and plan discussed with my attending, Dr. Elizalde. Evangelina Alvarez, PGY-2 Office Procedures [facility] Level of Care Nursing/Assessment Patient Status: Established Patient Nursing Assessment/Reassessment: Medication Reconciliation, Update PMH in EMR and Vital Signs Coordination of Care: Complex Care and Chronic Disease 1-5, Consent,records obtained, informed consent, Education Simp Pt/Fam, 1 Ins Authorization and Ref for ancillary service Established Patient Charge Established Patient Point Assignment: 110 Established Patient Point Charge: EP Level 3 (80-115)
== END 2024-12-28 15:19 | disposition home or self-care (01) ==
LOC: HODAHC 13:42
PROVIDERS: Supervising Provider Internal Medicine; Visit Provider Student in an Organized Health Care Education/Training Program
DX: S62.603A Fracture of unspecified phalanx of left middle finger, initial encounter for closed fracture (principal); S62.605A Fracture of unspecified phalanx of left ring finger, initial encounter for closed fracture; X58.XXXA Exposure to other specified factors, initial encounter; Y93.89 Activity, other specified; I10 Essential (primary) hypertension
CPT/HCPCS: 99213; G0463

== ENCOUNTER 2024-12-29 13:48 | Emergency (ER) | payer MEDICAID, SELFPAY ==
[2024-12-29 13:52] VITALS: BMI 38.0
[2024-12-29 14:34] VITALS: BP 143/89; PULSE 89; RESP 18; TEMP 37.1; O2SAT 99
--- NOTE | 2024-12-29 14:36 | PC.NURSE ---
pt upset about not being able to see hand specialist. Pt walked out of ER and is refusing to see provider.
== END 2024-12-29 14:36 | disposition left against medical advice (07) ==
PROVIDERS: Emergency Provider Emergency Medicine
DX: Z53.21 Procedure and treatment not carried out due to patient leaving prior to being seen by health care provider (principal)
CPT/HCPCS: 99281

== ENCOUNTER 2025-01-04 13:46 | Outpatient (AMB) | payer MEDICAID, SELFPAY ==
[2025-01-04 14:03] VITALS: BP 127/83; PULSE 110; RESP 18; TEMP 36.2; O2SAT 93; BMI 36.2
--- NOTE | 2025-01-04 14:03 | PD.RESCLINIC ---
Vital Signs 01/04/25 14:03 Height 1.73 m Height Method Stated Weight 108.522 kg Weight Measurement Method Standing Scale BMI 36.2 BP 127/83 Blood Pressure Source Automatic Cuff Blood Pressure Location Right Upper Arm Position Sitting Respiration 18 Pulse 110 H Pulse Source Monitor Temp 97.2 F Temp Source Temporal Artery Scan Pulse Oximetry (%) 93 L Oxygen Delivery Method Room Air Allergies/Meds Allergies & Medications Allergies No Known Allergies Allergy (Verified 01/04/25 14:16) Medication Reconciliation atorvastatin 20 mg tablet 20 mg PO QPM #30 tabs 10/30/24 [Rx Confirmed 01/04/25] clopidogrel 75 mg tablet 75 mg PO QDAY 30 days #30 tabs 10/30/24 [Rx Confirmed 01/04/25] metoprolol succinate 50 mg tablet,extended release 24 hr 50 mg PO QDAY #30 tabs 10/30/24 [Rx Confirmed 01/04/25] blood-glucose sensor (FreeStyle Meena 3 Sensor device) #1 ea 11/10/24 [Rx Confirmed 01/04/25] insulin degludec 100 unit/mL (3 mL) subcutaneous pen 10 unit (0.1 mL) subcut QHS #15 mL 11/10/24 [Rx Confirmed 01/04/25] metformin 1,000 mg tablet,extended release 24hr (osmotic) 1,000 mg PO BID #60 tabs 11/10/24 [Rx Confirmed 01/04/25] semaglutide 0.25 mg or 0.5 mg (2 mg/3 mL) subcutaneous pen injector (Ozempic) 0.5 mg (0.736 mL) subcut QWEEK #3 mL 11/11/24 [Rx Confirmed 01/04/25] blood-glucose sensor (FreeStyle Meena 3 Plus Sensor device) #1 ea 11/27/24 [Rx Confirmed 01/04/25] pantoprazole 40 mg tablet,delayed release 40 mg PO QDAY #30 tabs 11/27/24 [Rx Confirmed 01/04/25] losartan 25 mg tablet 50 mg (2 x 25 mg) PO QDAY 1 month #60 tabs 12/28/24 [Rx Confirmed 01/04/25] tramadol 50 mg tablet 50 mg PO BID PRN pain #10 tabs 12/28/24 [Rx Confirmed 01/04/25] losartan 50 mg tablet 50 mg PO QDAY 1 month #30 tabs 01/04/25 [Rx] tramadol 50 mg tablet 50 mg PO BID PRN pain 5 days #10 tabs 01/04/25 [Rx] MA Intake Visit Data Collection New Patient or Established: Established Patient (seen at [facility] within 3 years) Seen by Clinical Staff ONLY (RN/MA): No Pain Present Currently: No Pain scale:: 0 Pain Scale Used: Martinez-Patino/Numerical Front End Web Designer Required: No PCP or OBGYN visit in last 3 months: No Hx Now: No Do You Feel Safe at Home: Yes Authorities Contacted: N/A Smoking Status Smoking Status: Never smoker Immunization / Flu Flu Vaccine in the Last 12 Months: No Flu Vaccine Exclusion Criteria: No Exclusion Criteria Past Medical History Past Medical History NEUROLOGIC: Positive Neurological Disorders CARDIAC: Positive Hypercholesterolemia and Hypertension; Negative Cardiac Disorders or Congestive Heart Failure RESPIRATORY: Negative Chronic Obstructive Pulmonary Disease (COPD) or Asthma GASTROINTESTINAL: Positive Hepatitis; Negative Gastrointestinal Bleed, Hemorrhoids or Gastroesophageal Reflux Disease GENITOURINARY: Positive Kidney Stones; Negative Renal Disease REPRODUCTIVE: Negative Testicular Cancer MUSCULOSKELETAL: Negative Arthritis ENDOCRINE: Positive Endocrine Disorders and Diabetes Mellitus Type 2; Negative Diabetes Mellitus Type 1 HEMATOLOGIC: Negative Anemia or Sickle Cell Disease PSYCHO/SOCIAL: Positive Recreational Drug Use, Depression and Anxiety OTHER HISTORY: Negative Blood Transfusions or Testicular Cancer Social History SMOKING STATUS: Smoking status: Never smoker SECOND HAND EXPOSURE: second hand exposure: No ALCOHOL: Alcohol Intake: Never HOUSING: Housing: mobile home LIVES WITH: Lives With: Family Patient Portal Questionaires PHQ-9 PHQ-2 Over the last 2 weeks, how often have you been bothered by any of the following problems? 1. Little interest or pleasure in doing things: not at all PHQ-9 8. Moving or speaking so slowly that other people could have noticed? - Or the opposite - being so fidgety or restless that you have been moving around a lot more than usual: not at all Source: Developed by Drs. Baljit Arenas, Deborah Montes De Oca, Gigi Kaye and colleagues, with an educational inna from [employer]. Social History Living Situation History Housing: mobile home Housing Other:: Patient resides at home with his aunt and step-father Tobacco History Smoking Status: Never smoker Second Hand Smoke Exposure: No Alcohol History Alcohol Intake: Never Domestic Abuse History Do You Feel Safe at Home: Yes Review of Systems Report any current symptoms Only answer those that you have currently: Past Medical History Past Medical History Have you ever been diagnosed with any of the following: Cardiology Problems Hypercholesterolemia: Yes Congestive Heart Failure: No Hypertension: Yes Respiratory Problems Chronic Obstructive Pulmonary Disease (COPD): No Asthma: No Stomache/Intestinal Problems Hepatitis: Yes Gastrointestinal Bleed: No Hemorrhoids: No Gastroesophageal Reflux Disease: No Genital/Urinary Problems Renal Disease: No Kidney Stones: Yes Reproductive Problems Testicular Cancer: No Musculoskeletal Problems Arthritis: No Endocrine Problems Diabetes Mellitus Type 1: No Diabetes Mellitus Type 2: Yes Blood Problems Anemia: No Sickle Cell Disease: No Psychologic Problems Recreational Drug Use: Yes Depression: Yes Anxiety: Yes Other Problems Blood Transfusions: No History of Present Illness HPI Narrative Mr. Harrington is a 49-year-old obese male with a past medical history of diabetes mellitus, hypertension and recurrent occipital headaches who came to the [facility] for a f/u visit for orthopedic referral for his broken fingers. Patient was able to see a PA from the [facility] [place] and is scheduled to see the hand surgeon this Saturday for further evaluation. 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 Patient also endorsed having elevated sugars in the range of 378-400. In office blood sugar was 483. Patient was strongly urged to start taking his long acting insulin, either Tresiba or Glargine, and start at 10units to be administered at night, and increase by 2 nightly if fasting BG level is above 150. Patient currently has his free style meena and asked him to f/u with his online dupligraph operator to increase his current prescription of Ozempic. Patient was educated on importance of exercise and diabetic diet. Patient can f/u in 2 weeks with a BG log via phone, and can make further adjustments then. Objective/Exam Narrative Physical exam: General: Awake and in no acute distress. Conversational and non-toxic appearing. HEENT: Normocephalic, atraumatic, mucous membranes moist. Heart: Regular rate and rhythm, no murmurs. Lungs: Clear to auscultation with no wheezing or crackles. Abdomen: Soft, nondistended, nontender, positive bowel sounds. ?No guarding or rebound tenderness. Neurologic: Alert and oriented x3, no gross neurological deficit, and patient able to move all 4 extremities except for left fingers limited d/t pain. Extremities: Left 3rd and 4th finger bandaged, no blood/discharge noted. Skin: No rash or ecchymoses. Assessment & Plan Diagnosis / Problem List (1) Broken finger: Status: Acute Assessment & Plan: Patient presented to the [facility] after presenting with two broken fingers, 3rd and 4th of his left hand. Patient went to [place] ED on Saturday morning after unfortunate incident while using his leaf blower. In the ED, patient's fingers were cleaned and stitched and was supposed to f/u with hand surgeon in [place] the next day. Plan: - Referral placed for hand surgery, will see hand surgeon this 01/06/25 - Pain control with 1 week supply of Tramadol HS at night. - F/u in 2 weeks (2) Hypertension: Status: Acute Qualifiers: Hypertension type: primary hypertension Qualified Code(s): I10 - Essential (primary) hypertension Assessment & Plan: Patient's BP continues to rise, in the setting of acute pain from above finger fractures. Plan: -Continue with 50mg Losartan, changed script to reflect new formulation and confirmed with pharamacy -Referral placed to Dr. Mazariegos in [place] (3) Diabetes mellitus: Status: Acute Qualifiers: Diabetes mellitus type: type 2 Diabetes mellitus petroleum terminal plant operator insulin use: unspecified assisted insulin use status Diabetes mellitus complication status: with hyperglycemia Qualified Code(s): E11.65 - Type 2 diabetes mellitus with hyperglycemia Assessment & Plan: Patient's blood sugar range has been in the high 300s to low 400s. Patient states he has made changes to his diet but does admit to sneaking in desserts. Also endorsed increase in urinary frequency Plan: -educated on importance of exercise and diabetic diet -Will have patient start on long acting insulin 10 u, and increase nightly by 2 if fasting BG in AM is > 150 -Requested patient to keep a BG log -Continue with Metformin 1000mg BIDWM and Ozempic SC weekly -Patient is scheduled to see his dupligraph operator this week, and urged to ask if provider can increase Ozempic dose and add meal time insulin Additional Assessment Patient's care and plan discussed with my attending, Dr. Elizalde. Evangelina Alvarez, PGY-2 Office Procedures [facility] Level of Care Nursing/Assessment Patient Status: Established Patient Nursing Assessment/Reassessment: Medication Reconciliation, Update PMH in EMR and Vital Signs Coordination of Care: Complex Care and Chronic Disease 1-5, Consent,records obtained, informed consent, Education Simp Pt/Fam and Staff clarify orders Established Patient Charge Established Patient Point Assignment: 85 Established Patient Point Charge: EP Level 3 (80-115)
== END 2025-01-04 15:22 | disposition home or self-care (01) ==
LOC: HODAHC 13:46
PROVIDERS: Supervising Provider Internal Medicine; Visit Provider Student in an Organized Health Care Education/Training Program
DX: S62.603A Fracture of unspecified phalanx of left middle finger, initial encounter for closed fracture (principal); S62.605A Fracture of unspecified phalanx of left ring finger, initial encounter for closed fracture; W29.8XXA Contact with other powered hand tools and household machinery, initial encounter; I10 Essential (primary) hypertension; E11.65 Type 2 diabetes mellitus with hyperglycemia; Z79.84 Long term (current) use of oral hypoglycemic drugs; Z79.85 Long-term (current) use of injectable non-insulin antidiabetic drugs
CPT/HCPCS: 99213; G0463

== ENCOUNTER 2025-01-15 19:16 | Emergency (ER) | payer MEDICAID, SELFPAY ==
[2025-01-15 19:17] VITALS: BMI 34.4
[2025-01-15 19:22] VITALS: BP 171/99; PULSE 91; RESP 19; TEMP 36.8; O2SAT 96
--- NOTE | 2025-01-15 21:01 | PD.EDWOUND ---
ED Wound/Laceration-RME/HPI General Chief Complaint: Wound/Laceration Stated Complaint: LEFT RING FINGER WOUND ODOR Time Seen by Provider: 01/15/25 20:04 Arrival date/time: 01/15/25 19:16 RME / HPI RME / HPI narrative: 49-year-old male patient with significant history of hypertension diabetes mellitus, came in for evaluation regarding left ring finger wound check. Apparently patient sustained a laceration to the left ring finger, 19 days ago, seen in different emergency room, and currently followed by hand specialist. Patient supposed to have surgery 3 days ago however it was canceled due to cardiac clearance problem. For the last several days patient has been noticing foul-smelling discharge. Denies any fever. Denies any other plane patient is not currently taking any antibiotic. Related Data Previous Rx's ?Medication ?Instructions ?Recorded atorvastatin 20 mg tablet 20 mg PO QPM #30 tabs 10/30/24 clopidogrel 75 mg tablet 75 mg PO QDAY 30 days #30 tabs 10/30/24 metoprolol succinate 50 mg 50 mg PO QDAY #30 tabs 10/30/24 tablet,extended release 24 hr blood-glucose sensor (FreeStyle #1 ea 11/10/24 Meena 3 Sensor device) insulin degludec 100 unit/mL (3 10 unit (0.1 mL) subcut QHS #15 mL 11/10/24 mL) subcutaneous pen metformin 1,000 mg tablet,extended 1,000 mg PO BID #60 tabs 11/10/24 release 24hr (osmotic) semaglutide 0.25 mg or 0.5 mg (2 0.5 mg (0.736 mL) subcut QWEEK #3 11/11/24 mg/3 mL) subcutaneous pen injector mL (Ozempic) blood-glucose sensor (FreeStyle #1 ea 11/27/24 Meena 3 Plus Sensor device) pantoprazole 40 mg tablet,delayed 40 mg PO QDAY #30 tabs 11/27/24 release losartan 25 mg tablet 50 mg (2 x 25 mg) PO QDAY 1 month 12/28/24 #60 tabs tramadol 50 mg tablet 50 mg PO BID PRN pain #10 tabs 12/28/24 losartan 50 mg tablet 50 mg PO QDAY 1 month #30 tabs 01/04/25 amoxicillin 875 mg-potassium 1 tab PO BID #14 tabs 01/15/25 clavulanate 125 mg tablet Allergies Allergy/AdvReac Type Severity Reaction Status Date / Time No Known Allergies Allergy Verified 01/15/25 19:16 Review of Systems Review of Systems Narrative Review of Systems: Review of system reviewed and within normal limits except mentioned in HPI ED Exam Narrative Physical exam: VITAL SIGNS: Reviewed. GENERAL APPEARANCE: Alert and interactive, follows commands, no acute distress, HEAD AND FACE: Non-traumatic. ENT: PERRL, pink conjunctivitis, eyelid no trauma, Mucous membrane moist. NECK: Supple, nontender, no nuchal rigidity. RECTAL: Deferred. GENITAL: Deferred. NEUROLOGICAL: Gross motor function intact sensory function intact, Appropriate for age. MUSCULOSKELETAL: low back nontender, full range of motion. EXTREMITIES:No discharge noted on the left ring finger, with yellowish discoloration. With tenderness, nonfluctuant, limitation range of motion. SKIN: Color pink, dry, no rash, no lacerations, no abrasions, no contusions. LYMPHATICS: Deferred. Course Quality Measures none Orders Category Date Time Status Amoxicillin/Pot Clav 875 [Augmentin 875] Med 01/15/25 21:01 Once 1 tab PO X1 ONE Lidocaine 1% 20 ml [Xylocaine 1% 20 ML] Med 01/15/25 20:32 Discontinued 10 ml INFL X1 ONE Vital Signs Vital signs: Vital Signs Temperature 98.2 F 01/15/25 19:22 Pulse Rate 91 01/15/25 19:22 Respiratory Rate 19 01/15/25 19:22 Blood Pressure 171/99 H 01/15/25 19:22 Pulse Oximetry (%) 96 01/15/25 19:22 Oxygen Delivery Method Room Air 01/15/25 19:22 Wound / Laceration MDM Narrative MDM Narrative:: 49-year-old male patient with significant history of hypertension diabetes mellitus, came in for evaluation regarding left ring finger wound check. Apparently patient sustained a laceration to the left ring finger, 19 days ago, seen in different emergency room, and currently followed by hand specialist. Patient supposed to have surgery 3 days ago however it was canceled due to cardiac clearance problem. For the last several days patient has been noticing foul-smelling discharge. Denies any fever. Denies any other plane patient is not currently taking any antibiotic. Patient was started on Augmentin for possible infection of the left ring finger tip. Patient was advised to see hand surgeon tomorrow. Patient is telling me that the infection has been ongoing for several days. Imaging or workup is not needed at this time. Patient was also advised to go to emergency room where the hand surgeon is available for worsening of symptoms Patient was advised also to do daily dressing as instructed. Patient data External records reviewed:: None Clinical information provided by:: patient Social determinants that could affect healthcare access:: none Patient has the following chronic illnesses:: Hypertension diabetes mellitus How is presenting disease/condition affected by chronic disease/condition?: exacerbated by Evaluation data The following diagnostics were reviewed and interpreted by me:: other (specify) Lab and/or radiology exams considered but not ordered:: None Interpretation Summary: None Medications / Prescriptions Medications or Prescriptions considered but not ordered:: None Medication administrations:: Medication Administration History Discontinued Medications Lidocaine HCl (Lidocaine Hcl 1% 20 Ml Vial) 10 ml INFL X1 ONE Stop: 01/15/25 20:33 None Consultations Consultation(s) initiated? (list below): No Diagnosis Wound Differential Diagnosis: other (Wound check, infected fingertip laceration,) Most likely diagnosis given after review of the tests above:: Wound check, infected fingertip laceration Admission Indicated Admission indicated?: not indicated Admission Request Was there a request for admission?: No Disposition Plan Disposition Plan: Discharge Discharge Attestation Discharge Attestation: The patient was given an opportunity to ask questions and understood the discharge instructions. Discharge instructions specifically effects, indications for sooner follow up or return to the emergency department, and the expected course of current diagnosis. Patient condition: Stable Discharge Plan Plan Patient Disposition: HOME (Self Care) Discharge Disposition comment: Stable Prescriptions/Referrals Prescriptions/Med Rec: New amoxicillin-pot clavulanate 875-125 mg tablet 1 tab PO BID Qty: 14 0RF No Action pantoprazole 40 mg tablet,delayed release (DR/EC) 40 mg PO QDAY Qty: 30 0RF (DME) FreeZüm XR Meena 3 Plus Sensor Device See Rx Instructions .Route Qty: 1 0RF Rx Instructions: As directed tramadol 50 mg tablet 50 mg PO BID PRN (Reason: pain) Qty: 10 0RF losartan 25 mg tablet 50 mg PO QDAY 30 Days Qty: 60 1RF losartan 50 mg tablet 50 mg PO QDAY 30 Days Qty: 30 3RF clopidogrel 75 mg tablet 75 mg PO QDAY 30 Days Qty: 30 3RF atorvastatin 20 mg tablet 20 mg PO QPM Qty: 30 3RF metoprolol succinate 50 mg tablet extended release 24 hr 50 mg PO QDAY MDD 50 mg Qty: 30 5RF (DME) FreeStyle Meena 3 Sensor Device See Rx Instructions .Route Qty: 1 3RF Rx Instructions: As directed insulin degludec 100 unit/mL (3 mL) insulin pen 10 unit subcut QHS Qty: 15 3RF Rx Instructions: 10 units every night at 10 PM metformin 1,000 mg tablet extended release 24hr 1,000 mg PO BID Qty: 60 0RF Ozempic 0.25 mg or 0.5 mg (2 mg/3 mL) pen injector 0.5 mg SUBCUT QWEEK Qty: 3 3RF Problem List Clinical Impression: Visit for wound check, Infected finger laceration Patient/Caregiver Discharge Instructions Discharge Activity: activity as tolerated Education Materials: ED Wound Check (Infection) Additional Instructions: Thank you for the opportunity for serving you today. You are stable for discharged . You are advised to: Follow-up with your PCP in 1 to 2 days Return to ED for worsening of symptoms Increase oral fluids Take medication as prescribed Continue dressing with Neosporin as needed Return to emergency room for worsening of symptoms or go to emergency room with your hand surgeon is available Print Language: Pashto Stand Alone Forms: Rhonda Award Info., Patient Portal Info Letter
[2025-01-15] MEDS: AMOXICILLIN/POT CLAV 875 TABLET 1 TAB PO (21:54)
[2025-01-15 21:56] VITALS: RESP 16
== END 2025-01-15 21:56 | disposition home or self-care (01) ==
LOC: SERX 22:39
PROVIDERS: Emergency Provider Emergency Medicine
DX: S61.215A Laceration without foreign body of left ring finger without damage to nail, initial encounter (principal); L08.9 Local infection of the skin and subcutaneous tissue, unspecified; X58.XXXA Exposure to other specified factors, initial encounter
CPT/HCPCS: 99282; A9270

== ENCOUNTER 2025-01-18 15:03 | Outpatient (AMB) | payer MEDICAID, SELFPAY ==
[2025-01-18 15:20] VITALS: BP 144/94; PULSE 112; RESP 18; TEMP 36.8; O2SAT 94; BMI 35.6
--- NOTE | 2025-01-18 15:20 | ACNOTE_ITS ---
Vital Signs 01/18/25 15:20 Height 1.78 m Height Method Stated Weight 113.001 kg Weight Measurement Method Standing Scale BMI 35.6 BP 144/94 H Blood Pressure Source Automatic Cuff Blood Pressure Location Right Upper Arm Position Sitting Respiration 18 Pulse 112 H Pulse Source Monitor Temp 98.2 F Temp Source Temporal Artery Scan Pulse Oximetry (%) 94 L Oxygen Delivery Method Room Air Allergies/Meds Allergies & Medications Allergies No Known Allergies Allergy (Verified 01/15/25 19:16) ND Intake Visit Data Collection PCP or OBGYN visit in last 3 months: Yes Smoking Status Smoking Status: Never smoker Immunization / Flu Flu Vaccine in the Last 12 Months: Yes Flu Vaccine Exclusion Criteria: Already Received Past Medical History Past Medical History NEUROLOGIC: Positive Neurological Disorders CARDIAC: Positive Hypercholesterolemia and Hypertension; Negative Cardiac Disorders or Congestive Heart Failure RESPIRATORY: Negative Chronic Obstructive Pulmonary Disease (COPD) or Asthma GASTROINTESTINAL: Positive Hepatitis; Negative Gastrointestinal Bleed, Hemorrhoids or Gastroesophageal Reflux Disease GENITOURINARY: Positive Kidney Stones; Negative Renal Disease REPRODUCTIVE: Negative Testicular Cancer MUSCULOSKELETAL: Negative Arthritis ENDOCRINE: Positive Endocrine Disorders and Diabetes Mellitus Type 2; Negative Diabetes Mellitus Type 1 HEMATOLOGIC: Negative Anemia or Sickle Cell Disease PSYCHO/SOCIAL: Positive Recreational Drug Use, Depression and Anxiety OTHER HISTORY: Negative Blood Transfusions or Testicular Cancer Social History SMOKING STATUS: Smoking status: Never smoker SECOND HAND EXPOSURE: second hand exposure: No ALCOHOL: Alcohol Intake: Never HOUSING: Housing: mobile home LIVES WITH: Lives With: Family Patient Portal Questionaires PHQ-9 PHQ-2 Over the last 2 weeks, how often have you been bothered by any of the following problems? 1. Little interest or pleasure in doing things: not at all PHQ-9 8. Moving or speaking so slowly that other people could have noticed? - Or the opposite - being so fidgety or restless that you have been moving around a lot more than usual: not at all Source: Developed by Drs. Baljit Arenas, Deborah Montes De Oca, Gigi Kaye and colleagues, with an educational inna from [employer]. Social History Living Situation History Housing: mobile home Housing Other:: Patient resides at home with his aunt and step-father Tobacco History Smoking Status: Never smoker Second Hand Smoke Exposure: No Alcohol History Alcohol Intake: Never Review of Systems Report any current symptoms Only answer those that you have currently: Past Medical History Past Medical History Have you ever been diagnosed with any of the following: Cardiology Problems Hypercholesterolemia: Yes Congestive Heart Failure: No Hypertension: Yes Respiratory Problems Chronic Obstructive Pulmonary Disease (COPD): No Asthma: No Stomache/Intestinal Problems Hepatitis: Yes Gastrointestinal Bleed: No Hemorrhoids: No Gastroesophageal Reflux Disease: No Genital/Urinary Problems Renal Disease: No Kidney Stones: Yes Reproductive Problems Testicular Cancer: No Musculoskeletal Problems Arthritis: No Endocrine Problems Diabetes Mellitus Type 1: No Diabetes Mellitus Type 2: Yes Blood Problems Anemia: No Sickle Cell Disease: No Psychologic Problems Recreational Drug Use: Yes Depression: Yes Anxiety: Yes Other Problems Blood Transfusions: No History of Present Illness HPI Narrative Mr. Harrington is a 49-year-old obese male with a past medical history of diabetes mellitus, hypertension and recurrent occipital headaches who came to the [facility] for a f/u visit from the ED. Patient presented to the [facility] for cardiac clearance. However in pursuit for clearance, patient had a foul smelling odor when removing his dressing from his left finger, and as a result went to multiple EDs and prescribed Abx and IV pain medications. Patient is scheduled for hand surgery at 10:[address] Grijalva in [place]. Patient's Revised Cardiac Risk Index (RCRI) is 1 d/t patient's use of Insulin. Patient's orthopedic surgery falls under low risk surgery and suggests a 1-6% risk of adverse cardiac events. Pt hasn't had any cardiac risk factors except for mild hypertension and has never had any ACS symptoms or recent [place] or Heart Failure. Based on patient's clinical exam, history, and imaging, patient has a low cardiac risk, and is cleared for surgery tomorrow. Review of Systems Review of Systems Systems Reviewed: All systems reviewed, normal except as documented Objective/Exam Narrative Physical exam: General: Awake and in no acute distress. Conversational and non-toxic appearing. HEENT: Normocephalic, atraumatic, mucous membranes moist. Heart: Regular rate and rhythm, no murmurs. Lungs: Clear to auscultation with no wheezing or crackles. Abdomen: Soft, nondistended, nontender, positive bowel sounds. ?No guarding or rebound tenderness. Neurologic: Alert and oriented x3, no gross neurological deficit, and patient able to move all 4 extremities except for left fingers limited d/t pain. Extremities: Left 3rd and 4th finger bandaged, no blood/discharge noted. Skin: No rash or ecchymoses. Assessment & Plan Diagnosis / Problem List (1) Pre-operative cardiovascular examination: Status: Acute Assessment & Plan: Patient has a two broken finger fractures located in left hand. Pt's orthopedic surgery falls under the low risk category, and suggests a 1-6% risk of adverse cardiac events. Patient's Revised Cardiac Risk Index (RCRI) is 1. All components have been reviewed. Pt hasn't had any cardiac risk factors except for mild hypertension and has never had any ACS symptoms or recent [place] or Heart Failure. Based on patient's clinical exam, history, and imaging, patient has a low cardiac risk, and is cleared for surgery. Plan: -Continue to control patient's pain with Percocet, as patient hasn't had much pain relief with [place], Tramadol, or Tylenol (2) Broken finger: Status: Acute Assessment & Plan: Patient presented to the [facility] after presenting with two broken fingers, 3rd and 4th of his left hand. Patient went to [place] ED on Saturday morning after unfortunate incident while using his leaf blower. In the ED, patient's fingers were cleaned and stitched and was supposed to f/u with hand surgeon, Patient also returned to the ED two days ago d/t four smelling odor during a dressing change. Plan: - Has been following Hand surgery, and will see patient tomorrow - Pain control with Tramdol and Nroco have been ineffective - Will try Percocet for pain control prior to surgery - Continue with Abx (3) Hypertension: Status: Acute Qualifiers: Hypertension type: primary hypertension Qualified Code(s): I10 - Essential (primary) hypertension Assessment & Plan: Patient's BP continues to rise, in the setting of acute pain from above finger fractures. Plan: -Continue with 50mg Losartan -Will order Percocet for pain control Additional Assessment Patient's care and plan discussed with my attending, Dr. Elizalde. Evangelina Alvarez, PGY-2 Office Procedures [facility] Level of Care Nursing/Assessment Patient Status: Established Patient Nursing Assessment/Reassessment: Medication Reconciliation, Update PMH in EMR and Vital Signs Coordination of Care: Complex Care and Chronic Disease 1-5, Consent,records obtained, informed consent, Education Simp Pt/Fam and Staff clarify orders Established Patient Charge Established Patient Point Assignment: 85 Established Patient Point Charge: EP Level 3 (80-115)
== END 2025-01-18 16:05 | disposition home or self-care (01) ==
LOC: HODAHC 15:03
PROVIDERS: Supervising Provider Student in an Organized Health Care Education/Training Program; Visit Provider Student in an Organized Health Care Education/Training Program
DX: S62.603G Fracture of unspecified phalanx of left middle finger, subsequent encounter for fracture with delayed healing (principal); S62.605G Fracture of unspecified phalanx of left ring finger, subsequent encounter for fracture with delayed healing; W29.8XXD Contact with other powered hand tools and household machinery, subsequent encounter; I10 Essential (primary) hypertension
CPT/HCPCS: 99213; G0463

== ENCOUNTER 2025-01-25 14:04 | Outpatient (AMB) | payer MEDICAID, SELFPAY ==
[2025-01-25 14:59] VITALS: BP 151/95; PULSE 74; RESP 20; TEMP 36.7; O2SAT 95; BMI 35.6
--- NOTE | 2025-01-25 14:59 | PD.RESCLINIC ---
Vital Signs 01/25/25 14:59 Height 1.78 m Height Method Measured Weight 112.491 kg Weight Measurement Method Standing Scale BMI 35.6 BP 151/95 H Blood Pressure Source Automatic Cuff Blood Pressure Location Right Upper Arm Position Sitting Respiration 20 Pulse 74 Pulse Source Monitor Temp 98.1 F Temp Source Temporal Artery Scan Pulse Oximetry (%) 95 Oxygen Delivery Method Room Air Allergies/Meds Allergies & Medications Allergies No Known Allergies Allergy (Verified 01/15/25 19:16) MA Intake Visit Data Collection New Patient or Established: Established Patient (seen at [facility] within 3 years) Seen by Clinical Staff ONLY (RN/MA): No Reason for Visit:: NEEDS MEDICATION FOR SURGERY PT SCHEDULE FOR TOMORROW 01/26/2025 Pain Present Currently: Yes Pain Location: Finger Pain scale:: 10 Infectious Waste Technician Required: No PCP or OBGYN visit in last 3 months: No Do You Feel Safe at Home: Yes Authorities Contacted: N/A Smoking Status Smoking Status: Never smoker Immunization / Flu Flu Vaccine in the Last 12 Months: Yes Flu Vaccine Exclusion Criteria: Already Received Past Medical History Past Medical History NEUROLOGIC: Positive Neurological Disorders CARDIAC: Positive Hypercholesterolemia and Hypertension; Negative Cardiac Disorders or Congestive Heart Failure RESPIRATORY: Negative Chronic Obstructive Pulmonary Disease (COPD) or Asthma GASTROINTESTINAL: Positive Hepatitis; Negative Gastrointestinal Bleed, Hemorrhoids or Gastroesophageal Reflux Disease GENITOURINARY: Positive Kidney Stones; Negative Renal Disease REPRODUCTIVE: Negative Testicular Cancer MUSCULOSKELETAL: Negative Arthritis ENDOCRINE: Positive Endocrine Disorders and Diabetes Mellitus Type 2; Negative Diabetes Mellitus Type 1 HEMATOLOGIC: Negative Anemia or Sickle Cell Disease PSYCHO/SOCIAL: Positive Recreational Drug Use, Depression and Anxiety OTHER HISTORY: Negative Blood Transfusions or Testicular Cancer Social History SMOKING STATUS: Smoking status: Never smoker SECOND HAND EXPOSURE: second hand exposure: No ALCOHOL: Alcohol Intake: Never HOUSING: Housing: mobile home LIVES WITH: Lives With: Family Patient Portal Questionaires PHQ-9 PHQ-2 Over the last 2 weeks, how often have you been bothered by any of the following problems? 1. Little interest or pleasure in doing things: not at all PHQ-9 8. Moving or speaking so slowly that other people could have noticed? - Or the opposite - being so fidgety or restless that you have been moving around a lot more than usual: not at all Source: Developed by Drs. Baljit Arenas, Deborah Montes De Oca, Gigi Kaye and colleagues, with an educational inna from [employer]. Social History Living Situation History Housing: mobile home Housing Other:: Patient resides at home with his aunt and step-father Tobacco History Smoking Status: Never smoker Second Hand Smoke Exposure: No Alcohol History Alcohol Intake: Never Domestic Abuse History Do You Feel Safe at Home: Yes Review of Systems Report any current symptoms Only answer those that you have currently: Past Medical History Past Medical History Have you ever been diagnosed with any of the following: Cardiology Problems Hypercholesterolemia: Yes Congestive Heart Failure: No Hypertension: Yes Respiratory Problems Chronic Obstructive Pulmonary Disease (COPD): No Asthma: No Stomache/Intestinal Problems Hepatitis: Yes Gastrointestinal Bleed: No Hemorrhoids: No Gastroesophageal Reflux Disease: No Genital/Urinary Problems Renal Disease: No Kidney Stones: Yes Reproductive Problems Testicular Cancer: No Musculoskeletal Problems Arthritis: No Endocrine Problems Diabetes Mellitus Type 1: No Diabetes Mellitus Type 2: Yes Blood Problems Anemia: No Sickle Cell Disease: No Psychologic Problems Recreational Drug Use: Yes Depression: Yes Anxiety: Yes Other Problems Blood Transfusions: No History of Present Illness HPI Narrative Mr. Harrington is a 49-year-old obese male with a past medical history of diabetes mellitus, hypertension and recurrent occipital headaches who came to the [facility] for a f/u visit from the ED. Patient presented to the [facility] for cardiac clearance. However in pursuit for clearance, patient had a foul smelling odor when removing his dressing from his left finger, and as a result went to multiple EDs and prescribed Abx and IV pain medications. Patient is scheduled for hand surgery at 10:[address] Grijalva in [place]. Patient's Revised Cardiac Risk Index (RCRI) is 1 d/t patient's use of Insulin. Patient's orthopedic surgery falls under low risk surgery and suggests a 1-6% risk of adverse cardiac events. Pt hasn't had any cardiac risk factors except for mild hypertension and has never had any ACS symptoms or recent [place] or Heart Failure. Based on patient's clinical exam, history, and imaging, patient has a low cardiac risk, and is cleared for surgery tomorrow. 01/25/2025: Patient presented to the clinic for prescription refill of pain medication as he ran out of his medications. He reported that he is due for his hand surgery due to wound on left hand on 01/26/2025 but he has been having excruciating pain rated as 8 on 10 in his left hand digits. He was taking Bono and tramadol but they are not helpful and he ran out of the medications as well. He was given a prescription refill for Percocet 5/325 as his recent kidney functions show slightly elevated creatinine 1.1. He was also given a prescription refill for freestyle anahy 3 sensor as he ran out of it as well. He denied any chest pain, shortness of breath, abdominal pain, nausea, vomiting, dysuria. Patient was advised to follow-up as needed in the clinic. Review of Systems Review of Systems Systems Reviewed: All systems reviewed, normal except as documented Objective/Exam Narrative Physical exam: General: Awake and in no acute distress. Conversational and non-toxic appearing. HEENT: Normocephalic, atraumatic, mucous membranes moist. Heart: Regular rate and rhythm, no murmurs. Lungs: Clear to auscultation with no wheezing or crackles. Abdomen: Soft, nondistended, nontender, positive bowel sounds. ?No guarding or rebound tenderness. Neurologic: Alert and oriented x3, no gross neurological deficit, and patient able to move all 4 extremities except for left fingers limited d/t pain. Extremities: Left 3rd and 4th finger bandaged, no blood/discharge noted. Skin: No rash or ecchymoses. Assessment & Plan Diagnosis / Problem List (1) Broken finger: Status: Acute Assessment & Plan: -Patient presented to the clinic for prescription refill of pain medication as he ran out of his medications. He reported that he is due for his hand surgery due to wound on left hand on 01/26/2025 but he has been having excruciating pain rated as 8 on 10 in his left hand digits. He denied any chest pain, shortness of breath, abdominal pain, nausea, vomiting, dysuria. Plan: -He was given a prescription refill for Percocet 5/325 mg as needed for pain -Prescription refill for freestyle anahy 3 sensor -Due for left hand surgery tomorrow,01/26/25 -Patient was advised to follow-up as needed in the clinic Plan of care discussed with attending Physician,Dr Fide Gonzáles MD PGY2 Office Procedures [facility] Level of Care Nursing/Assessment Patient Status: Established Patient Nursing Assessment/Reassessment: BP Monitoring, Medication Reconciliation, Update PMH in EMR and Vital Signs Coordination of Care: Complex Care and Chronic Disease 1-5, Consent,records obtained, informed consent, Lab and Imaging orders and Results/Orders obtained Established Patient Charge Established Patient Point Assignment: 95 Established Patient Point Charge: EP Level 3 (80-115)
== END 2025-01-25 16:07 | disposition home or self-care (01) ==
PROVIDERS: Supervising Provider Student in an Organized Health Care Education/Training Program; Visit Provider Student in an Organized Health Care Education/Training Program
DX: Z76.0 Encounter for issue of repeat prescription (principal); S62.603G Fracture of unspecified phalanx of left middle finger, subsequent encounter for fracture with delayed healing; S62.605G Fracture of unspecified phalanx of left ring finger, subsequent encounter for fracture with delayed healing; X58.XXXD Exposure to other specified factors, subsequent encounter; I10 Essential (primary) hypertension; E11.9 Type 2 diabetes mellitus without complications
CPT/HCPCS: 99213; G0463

== ENCOUNTER 2025-02-08 13:03 | Outpatient (AMB) | payer MEDICAID, SELFPAY ==
[2025-02-08 13:12] VITALS: BP 138/88; PULSE 93; TEMP 36.1; O2SAT 95; BMI 35.6
--- NOTE | 2025-02-08 13:12 | PD.RESCLINIC ---
Vital Signs 02/08/25 13:12 Height 1.78 m Height Method Stated Weight 112.945 kg Weight Measurement Method Standing Scale BMI 35.6 BP 138/88 H Blood Pressure Source Automatic Cuff Blood Pressure Location Right Upper Arm Position Sitting Pulse 93 Pulse Source Monitor Temp 97.0 F Temp Source Temporal Artery Scan Pulse Oximetry (%) 95 Oxygen Delivery Method Room Air Allergies/Meds Allergies & Medications Allergies No Known Allergies Allergy (Verified 02/08/25 13:13) Medication Reconciliation atorvastatin 20 mg tablet 20 mg PO QPM #30 tabs 10/30/24 [Rx Confirmed 02/08/25] clopidogrel 75 mg tablet 75 mg PO QDAY 30 days #30 tabs 10/30/24 [Rx Confirmed 02/08/25] metoprolol succinate 50 mg tablet,extended release 24 hr 50 mg PO QDAY #30 tabs 10/30/24 [Rx Confirmed 02/08/25] blood-glucose sensor (FreeStyle Meena 3 Sensor device) #1 ea 11/10/24 [Rx Confirmed 02/08/25] semaglutide 0.25 mg or 0.5 mg (2 mg/3 mL) subcutaneous pen injector (Ozempic) 0.5 mg (0.736 mL) subcut QWEEK #3 mL 11/11/24 [Rx Confirmed 02/08/25] pantoprazole 40 mg tablet,delayed release 40 mg PO QDAY #30 tabs 11/27/24 [Rx Confirmed 02/08/25] losartan 25 mg tablet 50 mg (2 x 25 mg) PO QDAY 1 month #60 tabs 12/28/24 [Rx Confirmed 02/08/25] losartan 50 mg tablet 50 mg PO QDAY 1 month #30 tabs 01/04/25 [Rx Confirmed 02/08/25] amoxicillin 875 mg-potassium clavulanate 125 mg tablet 1 tab PO BID #14 tabs 01/15/25 [Rx Confirmed 02/08/25] cetirizine 10 mg tablet (All Day Allergy (cetirizine)) 10 mg PO QDAY PRN allergy symptoms #30 tabs 01/19/25 [Rx Confirmed 02/08/25] blood-glucose sensor (FreeStyle Meena 3 Plus Sensor device) #1 ea 02/08/25 [Rx] insulin degludec 100 unit/mL (3 mL) subcutaneous pen 10 unit (0.1 mL) subcut QHS #15 mL 02/12/25 [Rx] blood sugar diagnostic (FreeStyle Test strips) #100 ea 02/18/25 [Rx] metformin 1,000 mg tablet,extended release 24hr (osmotic) 1,000 mg PO BID #60 tabs 02/18/25 [Rx] [place] Intake Visit Data Collection New Patient or Established: Established Patient (seen at [facility] [place] 3 years) Seen by Clinical Staff ONLY (RN/MA): No Reason for Visit:: SURGERY FOLLOW UP Pain Present Currently: Yes Pain Location: Finger Pain scale:: 8 Pain Scale Used: Martinez-Patino/Numerical Facilities Clerk Required: No PCP or OBGYN visit in last 3 months: Yes Date of Last PCP or OBGYN visit: 01/25/25 Hx Now: No Do You Feel Safe at Home: Yes Authorities Contacted: N/A Smoking Status Smoking Status: Never smoker Immunization / Flu Flu Vaccine in the Last 12 Months: No Flu Vaccine Exclusion Criteria: No Exclusion Criteria Past Medical History Past Medical History NEUROLOGIC: Positive Neurological Disorders CARDIAC: Positive Hypercholesterolemia and Hypertension; Negative Cardiac Disorders or Congestive Heart Failure RESPIRATORY: Negative Chronic Obstructive Pulmonary Disease (COPD) or Asthma GASTROINTESTINAL: Positive Hepatitis; Negative Gastrointestinal Bleed, Hemorrhoids or Gastroesophageal Reflux Disease GENITOURINARY: Positive Kidney Stones; Negative Renal Disease REPRODUCTIVE: Negative Testicular Cancer MUSCULOSKELETAL: Negative Arthritis ENDOCRINE: Positive Endocrine Disorders and Diabetes Mellitus Type 2; Negative Diabetes Mellitus Type 1 HEMATOLOGIC: Negative Anemia or Sickle Cell Disease PSYCHO/SOCIAL: Positive Recreational Drug Use, Depression and Anxiety OTHER HISTORY: Negative Blood Transfusions or Testicular Cancer Social History SMOKING STATUS: Smoking status: Never smoker SECOND HAND EXPOSURE: second hand exposure: No ALCOHOL: Alcohol Intake: Never HOUSING: Housing: mobile home LIVES WITH: Lives With: Family Patient Portal Questionaires PHQ-9 PHQ-2 Over the last 2 weeks, how often have you been bothered by any of the following problems? 1. Little interest or pleasure in doing things: not at all 2. Feeling down, depressed, or hopeless: not at all Total score: 0 PHQ-9 3. Trouble falling or staying asleep, or sleeping too much: Not at all 4. Feeling tired or having little energy: Not at all 5. Poor appetite or overeating: Not at all 6. Feeling bad about yourself - or that you are a failure or have let yourself or your family down: Not at all 7. Trouble concentrating on things, such as reading the newspaper or watching television: Not at all 8. Moving or speaking so slowly that other people could have noticed? - Or the opposite - being so fidgety or restless that you have been moving around a lot more than usual: not at all 9. Thoughts that you would be better off or of hurting yourself in some way: Not at all Total score: 0 If you checked off any problems, how difficult have these problems made it for you to do your work, take care of things at home, or get along with other people?: not difficult at all Source: Developed by Drs. Baljit Arenas, Deborah Montes De Oca, Gigi Kaye and colleagues, with an educational inna from [employer]. Depression screen completed yes Social History Living Situation History Marital Status: Unknown Lives With: Family Housing: mobile home Housing Other:: Patient resides at home with his aunt and step-father Tobacco History Smoking Status: Never smoker Second Hand Smoke Exposure: No Alcohol History Alcohol Intake: Never Domestic Abuse History Do You Feel Safe at Home: Yes Review of Systems Report any current symptoms Only answer those that you have currently: Past Medical History Past Medical History Have you ever been diagnosed with any of the following: Cardiology Problems Hypercholesterolemia: Yes Congestive Heart Failure: No Hypertension: Yes Respiratory Problems Chronic Obstructive Pulmonary Disease (COPD): No Asthma: No Stomache/Intestinal Problems Hepatitis: Yes Gastrointestinal Bleed: No Hemorrhoids: No Gastroesophageal Reflux Disease: No Genital/Urinary Problems Renal Disease: No Kidney Stones: Yes Reproductive Problems Testicular Cancer: No Musculoskeletal Problems Arthritis: No Endocrine Problems Diabetes Mellitus Type 1: No Diabetes Mellitus Type 2: Yes Blood Problems Anemia: No Sickle Cell Disease: No Psychologic Problems Recreational Drug Use: Yes Depression: Yes Anxiety: Yes Other Problems Blood Transfusions: No History of Present Illness HPI Narrative Mr. Harrington is a 49-year-old obese male with a past medical history of diabetes mellitus, hypertension and recurrent occipital headaches who came to the [facility] for a f/u visit s/p finger surgery. Patient states that he was successfully able to see his hand surgeon in [place], and continues to complain of pain, however, none of the medications he has tried alleviates the pain such as Tramadol, [place], or Percocet. Patient states the pain is better than prior to surgery, and is scheduled for f/u with his hand surgeon in February. In addition, patient states his blood glucose range 70-180 is maintained 20% of the time, and has his BG rise to above 250 10% of the time. Advised patient to increase his long acting insulin and will also see his engineering team supervisor later this week. Patient also requested refills on all his medications. Patient otherwise denies any other complaints at this time. Patient is scheduled to follow up in two months. Review of Systems Review of Systems Systems Reviewed: All systems reviewed, normal except as documented Objective/Exam Narrative Physical exam: General: Awake and in no acute distress. Conversational and non-toxic appearing. HEENT: Normocephalic, atraumatic, mucous membranes moist. Heart: Regular rate and rhythm, no murmurs. Lungs: Clear to auscultation with no wheezing or crackles. Abdomen: Soft, nondistended, nontender, positive bowel sounds. ?No guarding or rebound tenderness. Neurologic: Alert and oriented x3, no gross neurological deficit, and patient able to move all 4 extremities except for third left left digit current in brace limited d/t pain. Extremities: Left 3rd and 4th digits in brace, no blood/discharge noted. Skin: No rash or ecchymoses. Assessment & Plan Diagnosis / Problem List (1) Diabetes mellitus: Status: Acute Qualifiers: Diabetes mellitus complication status: with hyperglycemia Diabetes mellitus intermediate manager insulin use: unspecified detention insulin use status Diabetes mellitus type: type 2 Qualified Code(s): E11.65 - Type 2 diabetes mellitus with hyperglycemia Assessment & Plan: Patient's blood sugar range has only been above 250 10% of the time, and states he has made signficant changes to his diet. Plan: -educated on importance of exercise and diabetic diet -Continue with long acting insulin, and may need to increase by 5-10 -Urged to speak with his engineering team supervisor this week for recs -Requested patient to keep a BG log via [employer] -Continue with Metformin 1000mg BIDWM and Ozempic SC weekly (2) Hypertension: Status: Acute Qualifiers: Hypertension type: primary hypertension Qualified Code(s): I10 - Essential (primary) hypertension Assessment & Plan: Patient's BP is stable, and most likely high in the past d/t his recent broken finger. Plan: -Continue with 50mg Losartan, refills provided -Patient is waiting to hear from Dr. Mazariegos office to establish care with a eyeglass lens cutter Additional Assessment Patient's care and plan discussed with my attending, Dr. Elizalde. Evangelina Alvarez, PGY-2 Office Procedures [facility] Level of Care Nursing/Assessment Patient Status: Established Patient Nursing Assessment/Reassessment: Medication Reconciliation, Update PMH in EMR and Vital Signs Coordination of Care: Complex Care and Chronic Disease 1-5, Consent,records obtained, informed consent, Education Simp Pt/Fam and Staff clarify orders Established Patient Charge Established Patient Point Assignment: 85 Established Patient Point Charge: EP Level 3 (80-115) TB Screening LTBI Screening: Has patient traveled, was born, or resided for at least 1 month, or frequent border crossing into a country with an elevated TB rate: No Immunosuppression, current or planned (HIV, organ transplant, treated with biologic agents, steroids, or other immunosuppression medication): No Close contact to someone with infectious TB disease during lifetime: No Homelessness or incarceration, current or past: No TB testing indicated at this time (at least 1 yes above): No
== END 2025-02-08 14:17 | disposition home or self-care (01) ==
LOC: HODAHC 13:03
PROVIDERS: Supervising Provider Internal Medicine; Visit Provider Student in an Organized Health Care Education/Training Program
DX: E11.65 Type 2 diabetes mellitus with hyperglycemia (principal); I10 Essential (primary) hypertension; Z79.85 Long-term (current) use of injectable non-insulin antidiabetic drugs; Z79.4 Long term (current) use of insulin
CPT/HCPCS: 99213; G0463

== ENCOUNTER 2025-03-15 14:40 | Outpatient (AMB) | payer SELFPAY ==
[2025-03-15 15:22] VITALS: BP 137/81; PULSE 82; RESP 20; TEMP 36.8; O2SAT 92; BMI 37.5
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
== END 2025-03-15 16:16 | disposition home or self-care (01) ==
PROVIDERS: Supervising Provider Internal Medicine; Visit Provider Student in an Organized Health Care Education/Training Program
DX: T14.8XXA Other injury of unspecified body region, initial encounter (principal); V89.2XXA Person injured in unspecified motor-vehicle accident, traffic, initial encounter; Y92.410 Unspecified street and highway as the place of occurrence of the external cause; E11.9 Type 2 diabetes mellitus without complications; I10 Essential (primary) hypertension
CPT/HCPCS: 99213; G0463

== ENCOUNTER 2025-03-18 09:34 | Outpatient (RCR) | payer MEDICAID, SELFPAY ==
--- NOTE | 2025-03-18 10:11 | PTNOTE_ITS ---
PT OP Initial Eval Patient Information Outpatient Physical Therapy Treatment Date: 03/18/25 Visit Reasons: left finger fracture Medical Diagnosis: M79.645 M79.642 S62.635A R20.0 Treatment Dx #1: Decreased L ring finger ROM Treatment Dx #2: L ring finger pain Start of Care: 03/18/25 Date of Onset: 01/26/25 Smoking Status Smoking Status: Never smoker Initial Assessment Subjective: Pt is 49 yr old male s/p L ring finger K wire placement on 01/26/25 and removal on 03/09/25. He is wearing a splint autocad operator with a bandage dressing. This limits grasping, gripping and holding objects and makes dressing and HH chores difficult. PMH: DM, high cholesterol Pt goal: to bend and move the finger without pain Objective: Daryn behavioral medical director strength: L: 25 lbs, R: 90 lbs L ring finger AROM: MCP flexion: 62 deg PIP flexion: 23 deg DIP flexion: unable Extension: full Observation: bruising of nail, sutures look slightly red Fist AROM: 40% of full Assessment: Pt presents with decreased L ring finger ROM and pain consistent with referring Dx and K-wire placement and removal. Pt requires skilled therapy to meet goals and has good rehab potential to meet goals. Eval followed by HEP. Short Term and Enterprise Architect Manager Goals 1. Ind with HEP 2. Improved PIP and DIP flexion to at least 70 deg 3. Improved fist AROM to full 4. Improved behavioral medical director strength to at least 45 lbs on L Treatment Plan ?1. Manual therapy ? 2. Therex ? 3. Modalities as indicated, moist heat, ice, estim Frequency and Duration: 2x a week for 12 visits plus the evaluation Certification Dates: 03/18/25 to 06/16/25 Procedure Charges OP PT Eval Mod Complex 30 minutes: Yes
== END 2025-03-18 23:59 | disposition home or self-care (01) ==
LOC: CPTX 09:34
PROVIDERS: PCP Nurse Practitioner Family; Referring Provider Nurse Practitioner Family; Visit Provider Nurse Practitioner Family
DX: M79.645 Pain in left finger(s) (principal); M79.642 Pain in left hand; R20.0 Anesthesia of skin; S62.635D Displaced fracture of distal phalanx of left ring finger, subsequent encounter for fracture with routine healing; X58.XXXD Exposure to other specified factors, subsequent encounter; E11.9 Type 2 diabetes mellitus without complications
CPT/HCPCS: 97162

== ENCOUNTER 2025-03-24 21:38 | Emergency (ER) | payer MEDICAID, SELFPAY ==
[2025-03-24 21:40] VITALS: BMI 37.3
[2025-03-24 21:57] VITALS: BP 165/111; PULSE 105; RESP 22; TEMP 37; O2SAT 97
--- NOTE | 2025-03-24 22:17 | XR_ITS ---
Examination: AP chest single view TECHNIQUE: Upright PA chest single view INDICATIONS: Chest pain today Date and time: March 24, 2025 10:52 PM FINDINGS: Normal heart size. No pneumonia or pulmonary edema. The osseous structures are intact IMPRESSION: No active disease
--- NOTE | 2025-03-24 22:17 | EKG_ITS ---
[facility] Test Date: 2025-03-24 Pat Name: SUSAN TINAJERO Department: Room: - Gender: Male Central Supply Supervisor: : 1975 Requested By: Dave Bryan Order Number: [id number] Reading MD: Dave Bryan Measurements Intervals [place] Rate: 103 P: 44 TX: 188 QRS: -85 QRSD: 90 T: 34 QT: 315 QTc: 413 Interpretive Statements SINUS TACHYCARDIA LOW QRS VOLTAGE IN PRECORDIAL LEADS [QRS DEFLECTION < 1.0 mV IN CHEST LEADS] POSSIBLE RIGHT VENTRICULAR CONDUCTION DELAY [RSR (QR) IN V1/V2] LEFT ANTERIOR FASCICULAR BLOCK [QRS AXIS <= -45, QR IN I, RS IN II] INFERIOR MYOCARDIAL INFARCTION , OF INDETERMINATE AGE [40+ ms Q WAVE AND/OR ST/T ABNORMALITY IN II/aVF] ANTEROLATERAL MYOCARDIAL INFARCTION , OF INDETERMINATE AGE [40+ ms Q WAVE IN I/aVL/V3-V6] Compared to ECG 11/15/2024 15:49:35 Low QRS voltage now present Left anterior fascicular block now present Incomplete right bundle-branch block no longer present Myocardial infarct finding still present /store/S0/[id number]/ecg/[id number].pdf
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
[2025-03-24 22:53] LABS: Basophils # (Auto) 0.0 Thou/mm3 (0.0-0.2); Basophils % (Auto) 0 % (0-2.5); Eosinophils # (Auto) 0.4 Thou/mm3 (0.0-0.5); Eosinophils % (Auto) 5 % (0-10); Hematocrit 47.4 % (41.0-53.0); Hemoglobin 15.5 g/dL (13.5-16.0); Immature Granulocytes Auto 0.04 Thou/mm3 (0.00-0.00); Lymphocytes # (Auto) 1.5 Thou/mm3 (1.0-4.8); Lymphocytes % (Auto) 17 % (10-50); Mean Corpuscular HGB Conc 32.7 g/dl (31.0-37.0); Mean Corpuscular Hemoglobin 28.5 pg (25.0-35.0); Mean Corpuscular Volume 87 fL (80-100); Monocytes # (Auto) 0.9 Thou/mm3 (0.0-0.8); Monocytes % (Auto) 10 % (0-12); Neutrophils # (Auto) 6.3 Thou/mm3 (1.8-7.7); Neutrophils % (Auto) 69 % (37-80); Nucleated Red Blood Cell # 0.00 Thou/mm3 (0.00-0.00); Nucleated Red Blood Cell % 0 /100 WBC (0); Platelet Count 192 Thou/mm3 (140-440); RDW Standard Deviation 42.4 fL (35.1-43.9); Red Blood Count 5.43 Miln/mm3 (4.50-5.90); White Blood Count 9.1 Thou/mm3 (3.8-10.6)
[2025-03-24 23:02] LABS: INR 1.0 (0.9-1.3); Partial Thromboplastin Time 27.1 Seconds (22.0-36.0); Prothrombin Time 10.9 Seconds (9.0-12.2)
[2025-03-24 23:19] LABS: Alanine Aminotransferase 31 U/L (10-49); Albumin, Serum 4.7 gm/dL (3.5-5.0); Albumin/Globulin Ratio 1.7 (1.2-2.2); Alkaline Phosphatase 105 U/L (46-116); Anion Gap 8 (7-16); Aspartate Amino Transferase 15 U/L (0-34); BUN/Creatinine Ratio 11 Ratio (12-20); Bilirubin,Total 0.4 mg/dL (0.3-1.2); Blood Urea Nitrogen 9 mg/dL (9-23); Calcium 10.2 mg/dL (8.3-10.6); Calcium (Corrected) 10.2 mg/dL (8.5-10.1); Carbon Dioxide 24.8 mMol/L (20.0-31.0); Chloride 108 mMol/L (98-107); Creatinine (Component) 0.8 mg/dL (0.6-1.3); Estimated Creatinine Clearance 142.1 mL/min (>60); Globulin 2.7 gm/dL (2.3-3.5); Glucose 145 mg/dL (74-106); Lipase 65 U/L (12-53); Magnesium 1.7 mg/dL (1.6-2.6); Osmolality,Calculated 282 (275-295); Potassium 4.0 mMol/L (3.4-5.1); Sodium 141 mMol/L (136-145); Total Protein 7.4 gm/dL (5.7-8.2); Troponin I < 0.020 ng/mL (0.0-0.045); eGFR > 60 See Note
[2025-03-24 23:55] LABS: B-Type Natriuretic Peptide < 20 pg/mL (0-100)
[2025-03-24 23:59] LABS: D-Dimer < 250 ng/mL (<600)
[2025-03-25] MEDS: MORPHINE SULF LIQD 10 MG/5 ML UDC PO (00:36)
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
[2025-03-25 05:29] VITALS: BP 121/80; PULSE 84; RESP 18; TEMP 36.4; O2SAT 95
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
== END 2025-03-25 05:43 | disposition home or self-care (01) ==
PROVIDERS: Physician Assistant; Emergency Provider Emergency Medicine
DX: S20.219A Contusion of unspecified front wall of thorax, initial encounter (principal); S30.1XXA Contusion of abdominal wall, initial encounter; V89.2XXA Person injured in unspecified motor-vehicle accident, traffic, initial encounter; R00.0 Tachycardia, unspecified; I44.4 Left anterior fascicular block; I10 Essential (primary) hypertension
CPT/HCPCS: 36415; 71045; 71250; 74176; 80053; 83690; 83735; 83880; 84484; 85025; 85379; 85610; 85730; 93005; 99283; A9270

== ENCOUNTER 2025-04-06 10:30 | Outpatient (RCR) | payer MEDICAID, SELFPAY ==
--- NOTE | 2025-03-22 12:42 | PT.ODAYNRPT ---
PT Outpatient Daily Note OP Daily Note Outpatient Physical Therapy Treatment Date: 03/22/25 Visit Reasons: Left finger FX Subjective: The stitches are out and the finger is sensitive Objective: See F/S for therex MT: PIP PROM x5' Assessment: Improvement with PROM of MCP and PIP joints into flexion Plan: Continue per POC Length of Time (minutes) of Treatment: 30 Minutes Procedure Charges Therapeutic Exercise 30 minutes: Yes
--- NOTE | 2025-03-24 12:44 | PT.ODAYNRPT ---
PT Outpatient Daily Note OP Daily Note Outpatient Physical Therapy Treatment Date: 03/24/25 Visit Reasons: Left finger FX Subjective: Pt reports L finger is doing better, as per pt he is pretty active performs HEP. Objective: Please see flow sheet for ther ex list. Assessment: Pt instructed on tendon glides and encouraged to perform for HEP. Plan: Continue with poC. Length of Time (minutes) of Treatment: 30 Minutes Procedure Charges Therapeutic Exercise 30 minutes: Yes
--- NOTE | 2025-03-29 10:59 | PT.ODAYNRPT ---
PT Outpatient Daily Note OP Daily Note Outpatient Physical Therapy Treatment Date: 03/29/25 Visit Reasons: Left finger FX Subjective: Pt reports L radiologist diagnostic mobility is improving, pt stays busy and working hand. Objective: Please see flow sheet for ther ex list. Assessment: Pt demonstrates improved radiologist diagnostic ROm, tolerated PROM well. Plan: Continue with POC. Length of Time (minutes) of Treatment: 30 Minutes Procedure Charges Therapeutic Exercise 30 minutes: Yes
--- NOTE | 2025-03-31 10:57 | PT.ODAYNRPT ---
PT Outpatient Daily Note OP Daily Note Outpatient Physical Therapy Treatment Date: 03/31/25 Visit Reasons: Left finger FX Subjective: Doing HEP of finger stretches with pain and tenderness of finger pad Objective: See F/S for therex Assessment: Improved fist ROM of MCP and PIP flexion to almost 90 deg but DIP flexion is limited by pain and tightness Plan: Continue per POC Length of Time (minutes) of Treatment: 30 Minutes Procedure Charges Therapeutic Exercise 30 minutes: Yes
--- NOTE | 2025-04-06 11:22 | PT.ODAYNRPT ---
PT Outpatient Daily Note OP Daily Note Outpatient Physical Therapy Treatment Date: 04/06/25 Visit Reasons: Left finger FX Subjective: Doing HEP of finger stretches with pain and tenderness of finger pad Objective: See F/S for therex Assessment: Improved fist ROM of MCP and PIP flexion to almost 90 deg but DIP flexion is limited by pain and tightness Plan: Continue per POC Length of Time (minutes) of Treatment: 30 Minutes Procedure Charges Therapeutic Exercise 30 minutes: Yes
== END 2025-04-18 23:59 | disposition home or self-care (01) ==
LOC: CPTX 10:30
PROVIDERS: PCP Nurse Practitioner Family; Referring Provider Nurse Practitioner Family; Visit Provider Nurse Practitioner Family
DX: M79.645 Pain in left finger(s) (principal); S62.635D Displaced fracture of distal phalanx of left ring finger, subsequent encounter for fracture with routine healing; X58.XXXD Exposure to other specified factors, subsequent encounter; E11.9 Type 2 diabetes mellitus without complications
CPT/HCPCS: 97110

== ENCOUNTER 2025-05-20 19:50 | Emergency (ER) | payer MEDICAID, SELFPAY ==
[2025-05-20 19:51] VITALS: BMI 37.3
[2025-05-20 20:11] VITALS: BP 137/91; PULSE 96; RESP 18; TEMP 36.8; O2SAT 98
--- NOTE | 2025-05-20 20:17 | XR_ITS ---
Examination: Abdomen sonogram, Limited Date and time of exam: May 20, 2025 2111 hrs. Indications: Right upper abdominal pain beginning 5 days ago Technique: Real-time ravi scale transabdominal sonographic images of the upper abdomen obtained. Findings: Absent gallbladder No common bile duct stones Pancreatic head 3.3 cm Liver 16.3 cm fatty infiltration Normal hepatopedal portal venous flow Patent IVC Impression: Absent gallbladder Negative for common bile duct stones
--- NOTE | 2025-05-20 20:17 | XR_ITS ---
Examination: CT abdomen with intravenous contrast CT pelvis with intravenous contrast 2-D coronal reconstructions 2-D sagittal reconstructions Date and time of exam:May 20, 2025, 2152 hrs. Indications: Right upper abdominal pain beginning 5 days ago Comparison: April 04, 2025. CTDI: vol (mGy) 20.31 DLP: (mGycm) 1348 Technique: Multiple axial sections of the abdomen and pelvis have been obtained. 64 slice high-resolution scanner used. 3 mm axial sections have been obtained, post intravenous injection 60 cc [id number] 2-D sagittal, coronal reconstructions obtained. Low dose protocols were performed. One or more of the following dose reduction techniques were used; automated exposure control, adjustment of the mA and/or KV according to patient size, use of iterative reconstruction technique. Findings: No visualized liver or splenic lesion Absent gallbladder No pancreatic or adrenal mass Perinephric stranding, no renal or ureteral calculi, no hydronephrosis Normal appendix No bowel obstruction Colonic diverticulosis Normal seminal vesicles No prostatomegaly Bladder intact Small fat-containing inguinal hernias Moderate lumbar spondylosis moderate disc narrowing L3-L4 Moderate narrowing hip joints Impression: Perinephric stranding, consider urinary tract infection Absent gallbladder, no common hepatic or common bile duct stones Normal appendix No bowel obstruction diverticulitis or free air
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
--- NOTE | 2025-05-20 20:30 | EDNOTE_ITS ---
ED Abdominal Pain RME/HPI General Chief Complaint: Abdominal Pain Stated complaint: RUQ ABD PAIN Time seen by provider: 05/20/25 20:29 Arrival date/time: 05/20/25 19:50 RME / HPI RME / HPI narrative: 50M with history of HTN, DM, meth use and cholecystectomy presents to ED with 5 days of worsening RUQ/epigastric pain and N/V. Pain is described as dull ache, severity moderate. Pains are just to the back. Patient told me that he is s itting in [employer] for 12 hours every day and working 7 days a week. Family told me that it could be related to that. Patient is also on Ozempic, however last intake was a month ago. Related Data Previous Rx's ?Medication ?Instructions ?Recorded atorvastatin 20 mg tablet 20 mg PO QPM #30 tabs clopidogrel 75 mg tablet 75 mg PO QDAY 30 days #30 ta bs 10/30/24 metoprolol succinate 50 mg 50 mg PO QDAY #30 tabs 10/17 12/11 tablet,extended release 24 hr blood-glucose sensor (FreeStyle #1 ea 11/10/24 Meena 3 Sensor device) semaglutide 0.25 mg or 0.5 mg (2 0.5 mg (0.736 mL) sub cut QWEEK #3 11/11/24 mg/3 mL) subcutaneous pen injector mL (Ozempic) pantoprazole 40 mg tablet,delayed 40 mg PO QDAY #30 ta bs 11/27/24 release losartan 25 mg tablet 50 mg (2 x 25 mg) PO QDAY 1 month 12/28/24 #60 tabs losartan 50 mg tablet 50 mg PO QDAY 1 month #30 ta bs 01/04/25 amoxicillin 875 mg-potassium 1 tab PO BID #14 tabs clavulanate 125 mg tablet blood-glucose sensor (FreeStyle #1 ea 02/08/25 Meena 3 Plus Sensor device) insulin degludec 100 unit/mL (3 10 unit (0.1 mL) subcu t QHS #15 mL 02/12/25 mL) subcutaneous pen blood sugar diagnostic (FreeStyle #100 ea 02/18/25 Test strips) metformin 1,000 mg tablet,extended 1,000 mg PO BID #60 tabs 02/18/25 release 24hr (osmotic) acetaminophen 500 mg capsule 500 mg PO Q6H PRN pain #3 0 caps 03/15/25 hydrocodone 5 mg-acetaminophen 325 1 tab PO Q8H PRN pa in #20 tabs 03/15/25 mg tablet ibuprofen 600 mg tablet 600 mg PO Q6H PRN pain #30 t abs 03/15/25 cetirizine 10 mg tablet (All Day 10 mg PO QDAY PRN all ergy symptoms 04/26/25 Allergy (cetirizine)) #30 tabs diclofenac sodium 3 % topical gel 1 applic topical TID 1 month #1 04/26/25 tube methocarbamol 500 mg tablet 500 mg PO Q8H PRN pain #30 tabs 05/20/25 pantoprazole 40 mg tablet,delayed 40 mg PO BID #14 tab s 05/20/25 release (Protonix) Allergies Allergy/AdvReac Type Severity Reaction Status Date / Time No Known Allergies Allergy Verified 05/20/25 19:53 Review of Systems Review of Systems Narrative Review of Systems: Review of system reviewed and within normal limits except mentioned in HPI ED Exam Narrative Physical exam: VITAL SIGNS: Reviewed. GENERAL APPEARANCE: Alert and interactive, follows commands, no acute distress, HEAD AND FACE: Non-traumatic. ENT: PERRL, pink conjunctivitis, eyelid no trauma, Mucous membrane moist. NECK: Supple, nontender, no nuchal rigidity. CHEST: No tenderness, no crepitus, no paradoxical movement, no retractions. LUNGS: Clear, well ventilated, symmetric, no rales, no wheezing, no ronchi, no stridor, good breath sounds bilaterally. HEART: Regular rate, regular rhythm, no murmur, no gallops. ABDOMEN: Soft, positive bowel sounds, nondistended, no guarding, epigastric tenderness, no rebound, no masses, RECTAL: Deferred. GENITAL: Deferred. NEUROLOGICAL: Gross motor function intact sensory function intact, Appropriate for age. MUSCULOSKELETAL: low back nontender, full range of motion. EXTREMITIES: Nontender, full range of motion. SKIN: Color pink, dry, no rash, no lacerations, no abrasions, no contusions. LYMPHATICS: Deferred. Course Quality Measures none Orders Category Date Time Status CT Screening NOW Care 05/20/25 20:18 Active Fingerstick [Bedside Blood Glucose] NOW Care 05/20/25 21:44 Active Insert IV NOW Care 05/20/25 20:[address] abdomen pelvis w con Stat Exams 05/20/25 20:17 Completed US gall bladder Stat Exams 05/20/25 20:17 Completed Alcohol, Blood Medical Stat Lab 05/20/25 20:33 Completed CBC Stat Lab 05/20/25 20:33 Completed CMP [Comprehensive Metabolic Panel] Stat Lab 05/20/25 20:33 Completed Drug Screen,Urine Stat Lab 05/20/25 20:43 Completed Lipase Stat Lab 05/20/25 20:33 Completed Urinalysis, C/S if Indicated Stat Lab 05/20/25 20:43 Completed Morphine* Inj Med 05/20/25 20:41 Discontinued 4 mg IVP X1 ONE Ondansetron Inj [Zofran Inj] Med 05/20/25 20:17 Discontinued 4 mg IVP X1 ONE Ringers Lactated 1000 ml [Lactated Ringers] 1,000 ml Med 05/20/25 20:41 Discontinued IV 999 mls/hr Vital Signs Vital signs: Vital Signs Temperature 98.2 F 05/20/25 20:11 Pulse Rate 96 05/20/25 20:11 Respiratory Rate 18 05/20/25 20:11 Blood Pressure 137/91 H 05/20/25 20:11 Pulse Oximetry (%) 98 05/20/25 20:11 Oxygen Delivery Method Room Air 05/20/25 20:11 Abdominal Pain MDM MDM Narrative MDM Narrative:: 50M with history of HTN, DM, meth use and cholecystectomy presents to ED with 5 days of worsening RUQ/epigastric pain and N/V. Pain is described as dull ache, severity moderate. Pains are just to the back. 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 Family told me that it could be related to that. Patient is also on Ozempic, however last intake was a month ago. Patient's workup today all came back unremarkable no pathologic or metabolic abnormality noted, except for blood sugar of [address] scan of the abdomen pelvis came back with no acute pathology. Ultrasound also came back unremarkable. Patient received morphine, IV fluids, and Zofran with complete resolution of symptoms. Patient stable for discharge home. Patient data External records reviewed:: None Clinical information provided by:: patient Social determinants that could affect healthcare access:: none Patient has the following chronic illnesses:: Diabetes mellitus How is presenting disease/condition affected by chronic disease/condition?: e xacerbated by Evaluation data The following diagnostics were reviewed and interpreted by me:: lab results and radiology exam(s) Lab and/or radiology exams considered but not ordered:: None Interpretation Summary: See MDM Medications / Prescriptions Medications or Prescriptions considered but not ordered:: None Medication administrations:: Medication Administration History Discontinued Medications Lactated Ringer's (Lactated Ringers) 1,000 mls @ 999 mls/hr IV .Q1H1M ONE Stop: 05/20/25 21:41 Last Infusion: 05/20/25 21:45 Dose: Infused Documented By: Admin: 05/20/25 20:51 Dose: 999 mls/hr Documented By: CVL Morphine Sulfate (Morphine Sulf Inj 4 Mg/Ml Vial) 4 mg IVP X1 ONE Stop: 05/20/25 20:42 Last Admin: 05/20/25 20:54 Dose: 4 mg Documented By: CVL Ondansetron HCl (Ondansetron Inj 2 Mg/Ml Inj 2 Ml) 4 mg IVP X1 ONE; Protocol Stop: 05/20/25 20:18 Last Admin: 05/20/25 20:53 Dose: 4 mg Documented By: CVL IV fluids, morphine and Zofran Consultations Consultation(s) initiated? (list below): No Diagnosis Differential diagnosis abdominal pain: abdominal pain, gastroenteritis and pancreatitis Most likely diagnosis given after review of the tests above:: Abdominal pain Admission Indicated Admission indicated?: not indicated Admission Request Was there a request for admission?: No Disposition Plan Disposition Plan: Discharge Discharge Attestation Discharge Attestation: The patient and all family members were given an opportunity to ask questions and understood the discharge instructions. Discharge instructions specifically effects, indications for sooner follow up or return to the emergency department, and the expected course of current diagnosis. Patient condition: Stable Discharge Plan Plan Patient Disposition: HOME (Self Care) Discharge Disposition comment: Stable Prescriptions/Referrals Prescriptions/Med Rec: New methocarbamol 500 mg tablet 500 mg PO Q8H PRN (Reason: pain) Qty: 30 0RF pantoprazole [Protonix] 40 mg tablet,delayed release (DR/EC) 40 mg PO BID Qty: 14 0RF No Action pantoprazole 40 mg tablet,delayed release (DR/EC) 40 mg PO QDAY Qty: 30 0RF insulin degludec 100 unit/mL (3 mL) insulin pen 10 unit subcut QHS Qty: 15 3RF Rx Instructions: 10 units every night at 10 PM losartan 25 mg tablet 50 mg PO QDAY 30 Days Qty: 60 1RF losartan 50 mg tablet 50 mg PO QDAY 30 Days Qty: 30 3RF clopidogrel 75 mg tablet 75 mg PO QDAY 30 Days Qty: 30 3RF atorvastatin 20 mg tablet 20 mg PO QPM Qty: 30 3RF metoprolol succinate 50 mg tablet extended release 24 hr 50 mg PO QDAY MDD 50 mg Qty: 30 5RF (DME) FreeStyle Meena 3 Sensor Device See Rx Instructions .Route Qty: 1 3RF Rx Instructions: As directed Ozempic 0.25 mg or 0.5 mg (2 mg/3 mL) pen injector 0.5 mg SUBCUT QWEEK Qty: 3 3RF (DME) FreeStyle Meena 3 Plus Sensor Device See Rx Instructions .Route Qty: 1 4RF Rx Instructions: As directed (DME) FreeStyle Test Strip See Rx Instructions .Route Qty: 100 0RF Rx Instructions: As directed metformin 1,000 mg tablet extended release 24hr 1,000 mg PO BID Qty: 60 2RF ibuprofen 600 mg tablet 600 mg PO Q6H MDD 4 PRN (Reason: pain) Qty: 30 1RF hydrocodone-acetaminophen 5-325 mg tablet 1 tab PO Q8H MDD 3 PRN (Reason: pain) Qty: 20 0RF acetaminophen 500 mg capsule 500 mg PO Q6H MDD 4 PRN (Reason: pain) Qty: 30 1RF diclofenac sodium 3 % gel 1 applic topical TID 30 Days Qty: 1 1RF cetirizine [All Day Allergy (cetirizine)] 10 mg tablet 10 mg PO QDAY PRN (Reason: allergy symptoms) Qty: 30 1RF amoxicillin-pot clavulanate 875-125 mg tablet 1 tab PO BID Qty: 14 0RF Referrals: No Primary/Family,Physician [Primary Care Provider] - In 1 week Problem List Clinical Impression: Right upper quadrant abdominal pain Patient/Caregiver Discharge Instructions Discharge Activity: activity as tolerated Education Materials: Abdominal Pain Additional Instructions: Thank you for the opportunity for serving you today. You are stable for discharged . You are advised to: Follow-up with your PCP in 1 to 2 days Return to ED for worsening of symptoms Increase oral fluids Take medication as prescribed Print Language: Korean Stand Alone Forms: Rhonda Award Info., Patient Portal Info Letter PA/STORE OPERATIONS SPECIALIST Supervising Physician JUSTEN/RAFAEL Supervising Physician: MD Nancy
[2025-05-20 20:47] LABS: Basophils # (Auto) 0.0 Thou/mm3 (0.0-0.2); Basophils % (Auto) 0 % (0-2.5); Eosinophils # (Auto) 0.4 Thou/mm3 (0.0-0.5); Eosinophils % (Auto) 4 % (0-10); Hematocrit 47.5 % (41.0-53.0); Hemoglobin 16.0 g/dL (13.5-16.0); Immature Granulocytes Auto 0.07 Thou/mm3 (0.00-0.00); Lymphocytes # (Auto) 3.8 Thou/mm3 (1.0-4.8); Lymphocytes % (Auto) 32 % (10-50); Mean Corpuscular HGB Conc 33.7 g/dl (31.0-37.0); Mean Corpuscular Hemoglobin 28.6 pg (25.0-35.0); Mean Corpuscular Volume 85 fL (80-100); Monocytes # (Auto) 0.8 Thou/mm3 (0.0-0.8); Monocytes % (Auto) 7 % (0-12); Neutrophils # (Auto) 6.7 Thou/mm3 (1.8-7.7); Neutrophils % (Auto) 56 % (37-80); Nucleated Red Blood Cell # 0.00 Thou/mm3 (0.00-0.00); Nucleated Red Blood Cell % 0 /100 WBC (0); Platelet Count 215 Thou/mm3 (140-440); RDW Standard Deviation 42.5 fL (35.1-43.9); Red Blood Count 5.59 Miln/mm3 (4.50-5.90); White Blood Count 11.8 Thou/mm3 (3.8-10.6)
[2025-05-20 20:48] LABS: Collection Type, Urine Clean Catch
[2025-05-20] MEDS: RINGERS LACTATED 1000 ML 1,000 ML 999 ML IV (20:51)
[2025-05-20] MEDS: ONDANSETRON INJ 2 MG/ML INJ 2 ML 4 MG IVP (20:53)
[2025-05-20] MEDS: MORPHINE SULF INJ 4 MG/ML VIAL IVP (20:54)
[2025-05-20 20:56] LABS: Bilirubin,Urine Negative (Negative); Blood,Urine Negative (Negative); Clarity,Urine Clear (Clear/Hazy); Color,Urine Lt-Yellow (Lt Yel-Yel); Culture Indicated,Urine Not Indicated; Glucose, Urine 4+ (Negative); Ketones,Urine Negative (Negative); Leukocyte Esterase,Urine Negative (Negative); Nitrite,Urine Negative (Negative); PH,Urine 5.5 (5.0-7.0); Protein,Urine Negative (Neg - Trace); RBC,Urine 1 /hpf (0-3); Specific Gravity,Urine 1.046 (1.001-1.035); Squamous Epithelial Cell,Urine < 1 /hpf (0-5); Urobilinogen,Urine Negative mg/dL (0.0-1.0); WBC,Urine < 1 /hpf (0-5)
[2025-05-20 21:14] LABS: Alanine Aminotransferase 52 U/L (10-49); Albumin, Serum 5.0 gm/dL (3.5-5.0); Albumin/Globulin Ratio 1.7 (1.2-2.2); Alcohol, Blood Medical < 3.0 mg/dL (0-10.0); Alkaline Phosphatase 120 U/L (46-116); Anion Gap 10 (7-16); Aspartate Amino Transferase 20 U/L (0-34); BUN/Creatinine Ratio 12 Ratio (12-20); Bilirubin,Total 0.4 mg/dL (0.3-1.2); Blood Urea Nitrogen 13 mg/dL (9-23); Calcium 10.0 mg/dL (8.3-10.6); Calcium (Corrected) 10.0 mg/dL (8.5-10.1); Carbon Dioxide 27.4 mMol/L (20.0-31.0); Chloride 101 mMol/L (98-107); Creatinine (Component) 1.1 mg/dL (0.6-1.3); Estimated Creatinine Clearance 102.2 mL/min (>60); Globulin 2.9 gm/dL (2.3-3.5); Glucose 372 mg/dL (74-106); Lipase 46 U/L (12-53); Osmolality,Calculated 290 (275-295); Potassium 4.5 mMol/L (3.4-5.1); Sodium 138 mMol/L (136-145); Total Protein 7.9 gm/dL (5.7-8.2); eGFR > 60 See Note
[2025-05-20 21:16] LABS: Amphetamine/Methamp Scrn,U Negative (Negative); Barbiturate Screen,Urine Negative (Negative); Benzodiazepines Screen,Urine Negative (Negative); Benzoylecgonine Screen, Ur Negative (Negative); Fentanyl Screen,Urine Negative (Negative); Opiate Screen,Urine Negative (Negative); THC Screen,Urine Negative (Negative)
[2025-05-20 22:41] VITALS: BP 140/79; PULSE 93; RESP 19; TEMP 36.8; O2SAT 96
[2025-05-20 23:17] VITALS: BP 133/90; RESP 18; O2SAT 96
== END 2025-05-20 23:18 | disposition home or self-care (01) ==
PROVIDERS: Physician Assistant; Emergency Provider Emergency Medicine
DX: R10.11 Right upper quadrant pain (principal); I10 Essential (primary) hypertension; E11.9 Type 2 diabetes mellitus without complications
CPT/HCPCS: 36415; 74177; 76705; 80053; 80307; 80320; 81001; 83690; 85025; 96361; 96374; 96375; 99284; A4649; J2270; J2405; J7120; Q9967; G0480

== ENCOUNTER 2025-06-18 13:31 | Outpatient (AMB) | payer MEDICAID, SELFPAY ==
[2025-06-18 13:51] VITALS: BP 129/88; PULSE 106; RESP 18; TEMP 36.6; O2SAT 95; BMI 35.5
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
== END 2025-06-18 15:27 | disposition home or self-care (01) ==
LOC: HODAHC 13:31
PROVIDERS: PCP Student in an Organized Health Care Education/Training Program; Referring Provider Student in an Organized Health Care Education/Training Program; Supervising Provider Internal Medicine; Visit Provider Student in an Organized Health Care Education/Training Program
DX: B37.49 Other urogenital candidiasis (principal); E11.649 Type 2 diabetes mellitus with hypoglycemia without coma; Z79.4 Long term (current) use of insulin; G43.909 Migraine, unspecified, not intractable, without status migrainosus; I10 Essential (primary) hypertension; R20.8 Other disturbances of skin sensation; Z91.148 Patient's other noncompliance with medication regimen for other reason; E66.9 Obesity, unspecified; Z68.35 Body mass index [BMI] 35.0-35.9, adult; Z71.82 Exercise counseling
CPT/HCPCS: 99214; G0463

== ENCOUNTER 2025-06-25 13:33 | Outpatient (AMB) | payer MEDICAID, SELFPAY ==
[2025-06-25 13:48] VITALS: BP 137/92; PULSE 83; RESP 18; TEMP 36.7; O2SAT 94; BMI 35.7
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
== END 2025-06-25 16:10 | disposition home or self-care (01) ==
PROVIDERS: PCP Student in an Organized Health Care Education/Training Program; Referring Provider Student in an Organized Health Care Education/Training Program; Supervising Provider Internal Medicine
DX: N39.0 Urinary tract infection, site not specified (principal); E11.65 Type 2 diabetes mellitus with hyperglycemia; Z79.4 Long term (current) use of insulin; R20.2 Paresthesia of skin; G43.909 Migraine, unspecified, not intractable, without status migrainosus; I10 Essential (primary) hypertension
CPT/HCPCS: 99214; G0463

== ENCOUNTER 2025-07-25 15:58 | Emergency (ER) | payer MEDICAID, SELFPAY ==
[2025-07-25 16:20] VITALS: BP 144/90; PULSE 103; RESP 20; TEMP 36.8; O2SAT 95; BMI 35.9
--- NOTE | 2025-07-25 16:34 | XR_ITS ---
EXAMINATION: Lumbar spine 3 views TECHNIQUE: AP lateral: Lateral lower lumbar spine 3 views Date and time: July 25, 2025, 1640 7:00 p.m. INDICATIONS: Injury to the lower back 5 months ago, lower back pain. FINDINGS: Straightening of the normal lumbar lordosis Grade 1 anterolisthesis L3 on L4, 7 mm No lumbar fracture Advanced degenerative disc disease L3-L4 Moderate degenerative disc disease L4-L5 Prominent lumbar spondylosis IMPRESSION: No lumbar fracture Advanced degenerative disc disease L3-L4 Moderate degenerative disc disease L4-L5
--- NOTE | 2025-07-25 16:34 | EDRME_ITS ---
Rapid Medical Screening Exam RME Arrival date/time: 07/25/25 15:58 50-year-old male with a history of hyperlipidemia, hypertension, chronic back pain, presents to the emergency room with a chief complaint of lumbar back pain x 1 day I have greeted and performed a focused initial assessment of this patient. A com prehensive ED assessment and evaluation of the patient, analysis of all test results, and completion of the medical decision making process will be conducted by additional ED providers. Chief Complaint: Back Pain/Injury Time Seen by Provider: 07/25/25 16:09 Vital signs: Vital Signs Temperature 98.2 F 07/25/25 16:20 Pulse Rate 103 H 07/25/25 16:20 Respiratory Rate 20 07/25/25 16:20 Blood Pressure 144/90 H 07/25/25 16:20 Pulse Oximetry (%) 95 07/25/25 16:20 Oxygen Delivery Method Room Air 07/25/25 16:20 Vital signs reviewed by provider: Yes Exam: 8 out of 10 lumbar back pain with palpation No saddle anesthesia, no loss of bowel or bladder function Clear bilateral lung sounds Clinical Impression: Lumbar back sprain/
[2025-07-25] MEDS: KETOROLAC INJ 60 MG/2 ML VIAL 30 MG IM (16:48)
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
[2025-07-25] MEDS: DIAZEPAM 5 MG TABLET 2 MG PO (19:08)
[2025-07-25] MEDS: HYDROcodone/APAP 5/325 TABLET 1 TAB PO (19:09)
[2025-07-25 19:14] VITALS: BP 138/86; PULSE 99; RESP 16; TEMP 36.7; O2SAT 98
== END 2025-07-25 19:15 | disposition home or self-care (01) ==
PROVIDERS: Emergency Provider Emergency Medicine
DX: M51.16 Intervertebral disc disorders with radiculopathy, lumbar region (principal)
CPT/HCPCS: 72100; 96372; 99283; J1100; J1885; A9270

== ENCOUNTER 2025-08-13 14:48 | Emergency (ER) | payer MEDICAID, SELFPAY ==
[2025-08-13 14:49] VITALS: BMI 35.9
[2025-08-13 15:13] VITALS: BP 171/96; PULSE 120; RESP 20; TEMP 37; O2SAT 98
--- NOTE | 2025-08-13 15:28 | PD.EDRME ---
Rapid Medical Screening Exam [facility] Arrival date/time: 08/13/25 14:48 50-year-old male with a history of hyperlipidemia, type 2 diabetes, hypertension, presents to the emergency room with a chief complaint of blood in the stool and blood in the urine x 3 days I have greeted and performed a focused initial assessment of this patient. A comprehensive ED assessment and evaluation of the patient, analysis of all test results, and completion of the medical decision making process will be conducted by additional ED providers. Chief Complaint: GI Bleed Time Seen by Provider: 08/13/25 15:23 Vital signs: Vital Signs Temperature 98.6 F 08/13/25 15:13 Pulse Rate 120 H 08/13/25 15:13 Respiratory Rate 20 08/13/25 15:13 Blood Pressure 171/96 H 08/13/25 15:13 Pulse Oximetry (%) 98 08/13/25 15:13 Oxygen Delivery Method Room Air 08/13/25 15:13 Vital signs reviewed by provider: Yes Exam: Bilateral abdominal tenderness Clear bilateral lung sounds Clinical Impression: Hematuria/GI bleed
[2025-08-13 16:38] LABS: Basophils # (Auto) 0.0 Thou/mm3 (0.0-0.2); Basophils % (Auto) 0 % (0-2.5); Eosinophils # (Auto) 0.2 Thou/mm3 (0.0-0.5); Eosinophils % (Auto) 2 % (0-10); Hematocrit 46.7 % (41.0-53.0); Hemoglobin 15.8 g/dL (13.5-16.0); Immature Granulocytes Auto 0.04 Thou/mm3 (0.00-0.00); Lymphocytes # (Auto) 3.2 Thou/mm3 (1.0-4.8); Lymphocytes % (Auto) 31 % (10-50); Mean Corpuscular HGB Conc 33.8 g/dl (31.0-37.0); Mean Corpuscular Hemoglobin 29.2 pg (25.0-35.0); Mean Corpuscular Volume 86 fL (80-100); Monocytes # (Auto) 0.9 Thou/mm3 (0.0-0.8); Monocytes % (Auto) 9 % (0-12); Neutrophils # (Auto) 5.9 Thou/mm3 (1.8-7.7); Neutrophils % (Auto) 58 % (37-80); Nucleated Red Blood Cell # 0.00 Thou/mm3 (0.00-0.00); Nucleated Red Blood Cell % 0 /100 WBC (0); Platelet Count 237 Thou/mm3 (140-440); RDW Standard Deviation 41.0 fL (35.1-43.9); Red Blood Count 5.42 Miln/mm3 (4.50-5.90); White Blood Count 10.3 Thou/mm3 (3.8-10.6)
[2025-08-13 16:43] LABS: Glucose Estimated Average 326 mg/dL (80-131); Hemoglobin A1C 13.0 % Hgb (4.8-6.0)
[2025-08-13 16:44] LABS: INR 1.0 (0.9-1.3); Partial Thromboplastin Time 26.6 Seconds (22.0-36.0); Prothrombin Time 10.7 Seconds (9.0-12.2)
[2025-08-13 16:48] LABS: Alanine Aminotransferase 45 U/L (10-49); Albumin, Serum 4.9 gm/dL (3.5-5.0); Albumin/Globulin Ratio 1.7 (1.2-2.2); Alkaline Phosphatase 105 U/L (46-116); Anion Gap 12 (7-16); Aspartate Amino Transferase 31 U/L (0-34); BUN/Creatinine Ratio 15 Ratio (12-20); Bilirubin,Total 1.0 mg/dL (0.3-1.2); Blood Urea Nitrogen 17 mg/dL (9-23); Calcium 10.0 mg/dL (8.3-10.6); Calcium (Corrected) 10.0 mg/dL (8.5-10.1); Carbon Dioxide 26.7 mMol/L (20.0-31.0); Chloride 101 mMol/L (98-107); Creatinine (Component) 1.1 mg/dL (0.6-1.3); Estimated Creatinine Clearance 100.2 mL/min (>60); Globulin 2.9 gm/dL (2.3-3.5); Glucose 286 mg/dL (74-106); Osmolality,Calculated 290 (275-295); Potassium 4.1 mMol/L (3.4-5.1); Sodium 140 mMol/L (136-145); Total Protein 7.8 gm/dL (5.7-8.2); eGFR > 60 See Note
--- NOTE | 2025-08-13 17:30 | PC.NURSE ---
NO ANSWER IN LOBBY
--- NOTE | 2025-08-13 17:54 | PC.NURSE ---
NO ANSWER IN LOBBY X 2
[2025-08-13 18:05] VITALS: BP 131/92; PULSE 114; RESP 14; O2SAT 97
--- NOTE | 2025-08-13 18:30 | EDNOTE_ITS ---
ED GI Bleed RME/HPI General Chief complaint: GI Bleed Stated complaint: PEEING BLOOD & POOPIN BLOOD X1 DAY Time Seen by Provider: 08/13/25 15:23 Arrival date/time: 08/13/25 14:48 50-year-old male patient with significant history of hypertension diabetes mellitus came in for evaluation regarding bright red blood per rectum. Onset of symptoms earlier this morning severity of symptoms mild. Denies any rectal pain denies any abdominal pain. Patient also noted dark-colored urine. Denies any dysuria denies any vomiting denies any fever denies any other complaint patient is not taking any blood thinner. RME / HPI RME / HPI Narrative: 08/13/25 14:48 50-year-old male with a history of hyperlipidemia, type 2 diabetes, hypertension, presents to the emergency room with a chief complaint of blood in the stool and blood in the urine x 3 days I have greeted and performed a focused initial assessment of this patient. A comprehensive ED assessment and evaluation of the patient, analysis of all test results, and completion of the medical decision making process will be conducted by additional ED providers. Exam: Bilateral abdominal tenderness Clear bilateral lung sounds Impression: Hematuria/GI bleed Related Data Previous Rx's ?Medication ?Instructions ?Recorded atorvastatin 20 mg tablet 20 mg PO QPM #30 tabs clopidogrel 75 mg tablet 75 mg PO QDAY 30 days #30 ta bs 10/30/24 metoprolol succinate 50 mg 50 mg PO QDAY #30 tabs 10/17 12/11 tablet,extended release 24 hr blood-glucose sensor (FreeStyle #1 ea 11/10/24 Meena 3 Sensor device) semaglutide 0.25 mg or 0.5 mg (2 0.5 mg (0.736 mL) sub cut QWEEK #3 11/11/24 mg/3 mL) subcutaneous pen injector mL (Ozempic) losartan 25 mg tablet 50 mg (2 x 25 mg) PO QDAY 1 month 12/28/24 #60 tabs losartan 50 mg tablet 50 mg PO QDAY 1 month #30 ta bs 01/04/25 amoxicillin 875 mg-potassium 1 tab PO BID #14 tabs clavulanate 125 mg tablet blood-glucose sensor (FreeStyle #1 ea 02/08/25 Meena 3 Plus Sensor device) insulin degludec 100 unit/mL (3 10 unit (0.1 mL) subcu t QHS #15 mL 02/12/25 mL) subcutaneous pen blood sugar diagnostic (FreeStyle #100 ea 02/18/25 Test strips) metformin 1,000 mg tablet,extended 1,000 mg PO BID #60 tabs 02/18/25 release 24hr (osmotic) acetaminophen 500 mg capsule 500 mg PO Q6H PRN pain #3 0 caps 03/15/25 hydrocodone 5 mg-acetaminophen 325 1 tab PO Q8H PRN pa in #20 tabs 03/15/25 mg tablet ibuprofen 600 mg tablet 600 mg PO Q6H PRN pain #30 t abs 03/15/25 cetirizine 10 mg tablet (All Day 10 mg PO QDAY PRN all ergy symptoms 04/26/25 Allergy (cetirizine)) #30 tabs diclofenac sodium 3 % topical gel 1 applic topical TID 1 month #1 04/26/25 tube methocarbamol 500 mg tablet 500 mg PO Q8H PRN pain #30 tabs 05/20/25 pantoprazole 40 mg tablet,delayed 40 mg PO BID #14 tab s 05/20/25 release (Protonix) pantoprazole 40 mg tablet,delayed 40 mg PO QDAY #30 ta bs 05/27/25 release blood sugar diagnostic (FreeStyle #100 ea 06/18/25 Test strips) fluconazole 100 mg tablet 100 mg PO QDAY #7 tabs 06/18 ketoconazole 2 % topical cream 1 applic topical BID #6 0 grams 06/18/25 tirzepatide 2.5 mg/0.5 mL 2.5 mg (0.5 mL) subcut QWEEK #2 mL 06/20/25 subcutaneous pen injector (Mounesthelaro) insulin lispro 100 unit/mL 1 sliding scale dose subcut .AC 06/25/25 subcutaneous pen (Admelog SoloStar #15 mL U-100 Insulin lispro) pen needle, diabetic 31 gauge x #100 ea 06/25/2508/22 (Comfort EZ Pen [place]) hydrocodone 5 mg-acetaminophen 325 1 tab PO Q8H PRN pa in #20 tabs 07/25/25 mg tablet calcium polycarbophil 625 mg 1,250 mg (2 x 625 mg) PO BID #20 08/13/25 tablet (Fiber-Lax) tabs hydrocortisone acetate 25 mg 25 mg ID BID #24 ea 08/13 rectal suppository (Anusol-HC) Allergies Allergy/AdvReac Type Severity Reaction Status Date / Time No Known Allergies Allergy Verified 08/13/25 14:51 Review of Systems Review of Systems Narrative Review of Systems: Review of system reviewed and within normal limits except mentioned in HPI ED Exam Narrative Physical exam: VITAL SIGNS: Reviewed. GENERAL APPEARANCE: Alert and interactive, follows commands, no acute distress, HEAD AND FACE: Non-traumatic. ENT: PERRL, pink conjunctivitis, eyelid no trauma, Mucous membrane moist. NECK: Supple, nontender, no nuchal rigidity. CHEST: No tenderness, no crepitus, no paradoxical movement, no retractions. LUNGS: Clear, well ventilated, symmetric, no rales, no wheezing, no ronchi, no stridor, good breath sounds bilaterally. HEART: Regular rate, regular rhythm, no murmur, no gallops. ABDOMEN: Soft, positive bowel sounds, nondistended, no guarding, nontender, no rebound, no masses, RECTAL: Done by me, I did not notice any external hemorrhoids, no active bleeding noted no masses palpated also. GENITAL: Deferred. NEUROLOGICAL: Gross motor function intact sensory function intact, Appropriate for age. MUSCULOSKELETAL: low back nontender, full range of motion. EXTREMITIES: Nontender, full range of motion. SKIN: Color pink, dry, no rash, no lacerations, no abrasions, no contusions. LYMPHATICS: Deferred. Course Quality Measures none Orders Category Date Time Status A1C [Glycohemoglobin w (eAG)] Stat Lab 08/13/25 16:06 Completed CBC Stat Lab 08/13/25 16:06 Completed CMP [Comprehensive Metabolic Panel] Stat Lab 08/13/25 16:06 Completed PT [Prothrombin Time with INR] Stat Lab 08/13/25 16:06 Completed PTT [Partial Thromboplastin Time] Stat Lab 08/13/25 16:06 Completed Type and Screen Stat Lab 08/13/25 16:06 Completed Vital Signs Vital signs: Vital Signs Temperature 98.6 F 08/13/25 15:13 Pulse Rate 120 H 08/13/25 15:13 Respiratory Rate 20 08/13/25 15:13 Blood Pressure 171/96 H 08/13/25 15:13 Pulse Oximetry (%) 98 08/13/25 15:13 Oxygen Delivery Method Room Air 08/13/25 15:13 GI Bleed MDM Narrative MDM Narrative:: 50-year-old male patient with significant history of hypertension diabetes mellitus came in for evaluation regarding bright red blood per rectum. Onset of symptoms earlier this morning severity of symptoms mild. Denies any rectal pain denies any abdominal pain. Patient also noted dark-colored urine. Denies any dysuria denies any vomiting denies any fever denies any other complaint patient is not taking any blood thinner. Patient's laboratory workup all came back unremarkable including CBC with no sign of anemia. Platelets are normal vital signs are normal patient was advised to follow-up closely with PCP regarding hemoglobin A1c of 13 patient is not controlling his blood sugar tightly. Prior to discharge patient blood sugar was noted to be 286. I told her to follow-up with PCP and asked for referral to GI specialist for outpatient colonoscopy. Patient agrees with the plan Patient data External records reviewed:: None Clinical information provided by:: patient Social determinants that could affect healthcare access:: none Patient has the following chronic illnesses:: Diabetes mellitus hypertension How is presenting disease/condition affected by chronic disease/condition?: ex acerbated by Evaluation data The following diagnostics were reviewed and interpreted by me:: lab results Lab and/or radiology exams considered but not ordered:: None Interpretation Summary: See above Medications / Prescriptions Medications or Prescriptions considered but not ordered:: None Medication administrations:: None Consultations Consultation(s) initiated? (list below): No Diagnosis GI bleed differential diagnosis: hemorrhoids, Pia-Hamm syndrome, Lower gastrointestinal hemorrhage and hematochezia Most likely diagnosis given after review of the tests above:: Bright red blood per rectum Admission Indicated Admission indicated?: not indicated Admission Request Was there a request for admission?: No Disposition Plan Disposition Plan: Discharge Discharge Attestation Discharge Attestation: The patient was given an opportunity to ask questions and understood the discharge instructions. Discharge instructions specifically effects, indications for sooner follow up or return to the emergency department, and the expected course of current diagnosis. Patient condition: Stable Discharge Plan Plan Patient Disposition: HOME (Self Care) Discharge Disposition comment: Stable Prescriptions/Referrals Prescriptions/Med Rec: New hydrocortisone acetate [Anusol-HC] 25 mg suppository 25 mg ID BID Qty: 24 0RF calcium polycarbophil [Fiber-Lax] 625 mg tablet 1,250 mg PO BID Qty: 20 0RF No Action insulin degludec 100 unit/mL (3 mL) insulin pen 10 unit subcut QHS Qty: 15 3RF Rx Instructions: 10 units every night at 10 PM losartan 25 mg tablet 50 mg PO QDAY 30 Days Qty: 60 1RF losartan 50 mg tablet 50 mg PO QDAY 30 Days Qty: 30 3RF clopidogrel 75 mg tablet 75 mg PO QDAY 30 Days Qty: 30 3RF atorvastatin 20 mg tablet 20 mg PO QPM Qty: 30 3RF metoprolol succinate 50 mg tablet extended release 24 hr 50 mg PO QDAY MDD 50 mg Qty: 30 5RF (DME) FreeStyle Meena 3 Sensor Device See Rx Instructions .Route Qty: 1 3RF Rx Instructions: As directed Ozempic 0.25 mg or 0.5 mg (2 mg/3 mL) pen injector 0.5 mg SUBCUT QWEEK Qty: 3 3RF (DME) FreeStyle Meena 3 Plus Sensor Device See Rx Instructions .Route Qty: 1 4RF Rx Instructions: As directed (DME) FreeStyle Test Strip See Rx Instructions .Route Qty: 100 0RF Rx Instructions: As directed metformin 1,000 mg tablet extended release 24hr 1,000 mg PO BID Qty: 60 2RF ibuprofen 600 mg tablet 600 mg PO Q6H MDD 4 PRN (Reason: pain) Qty: 30 1RF hydrocodone-acetaminophen 5-325 mg tablet 1 tab PO Q8H MDD 3 PRN (Reason: pain) Qty: 20 0RF acetaminophen 500 mg capsule 500 mg PO Q6H MDD 4 PRN (Reason: pain) Qty: 30 1RF fluconazole 100 mg tablet 100 mg PO QDAY Qty: 7 0RF ketoconazole 2 % cream 1 applic topical BID Qty: 60 0RF (DME) FreeStyle Test Strip See Rx Instructions .Route Qty: 100 0RF Rx Instructions: As directed Mounjaro 2.5 mg/0.5 mL pen injector 2.5 mg subcut QWEEK Qty: 2 0RF Rx Instructions: for 4 weeks insulin lispro [Admelog SoloStar U-100 Insulin] 100 unit/mL insulin pen 1 sliding scale dose subcut .AC Qty: 15 0RF Rx Instructions: 180-200 give 2 units 201-250 give 3 units 250-300 give 4 units >300 give 5 units (DME) pen needle, diabetic [Comfort EZ Pen [place]] 31 gauge x 1/4 needle See Rx Instructions .Route Qty: 100 2RF Rx Instructions: As directed diclofenac sodium 3 % gel 1 applic topical TID 30 Days Qty: 1 1RF cetirizine [All Day Allergy (cetirizine)] 10 mg tablet 10 mg PO QDAY PRN (Reason: allergy symptoms) Qty: 30 1RF pantoprazole 40 mg tablet,delayed release (DR/EC) 40 mg PO QDAY Qty: 30 0RF amoxicillin-pot clavulanate 875-125 mg tablet 1 tab PO BID Qty: 14 0RF methocarbamol 500 mg tablet 500 mg PO Q8H PRN (Reason: pain) Qty: 30 0RF pantoprazole [Protonix] 40 mg tablet,delayed release (DR/EC) 40 mg PO BID Qty: 14 0RF hydrocodone-acetaminophen 5-325 mg tablet 1 tab PO Q8H MDD 3 tab PRN (Reason: pain) Qty: 20 0RF Referrals: No Primary/Family,Physician [Primary Care Provider] - In 1 week Problem List Clinical Impression: Bright red blood per rectum Patient/Caregiver Discharge Instructions Discharge Activity: activity as tolerated Education Materials: ED Lower GI Bleeding (Stable) Additional Instructions: Thank you for the opportunity for serving you today. You are stable for discharged . You are advised to: Follow-up with your PCP in 1 to 2 days Return to ED for worsening of symptoms Increase oral fluids Take medication as prescribed Print Language: Macedonian Stand Alone Forms: Rhonda Award Info., Patient Portal Info Letter PA/HISTORICAL SITE GUIDE Supervising Physician JUSTEN/RAFAEL Supervising Physician: MD Byron
[2025-08-13 18:51] VITALS: RESP 18
== END 2025-08-13 18:52 | disposition home or self-care (01) ==
PROVIDERS: Nurse Practitioner Family; Emergency Provider Emergency Medicine
DX: K92.1 Melena (principal); I10 Essential (primary) hypertension; E11.9 Type 2 diabetes mellitus without complications; E78.5 Hyperlipidemia, unspecified
CPT/HCPCS: 36415; 80053; 83036; 85025; 85610; 85730; 86850; 86900; 86901; 99282